=== PATIENT | male | born 1935 | race Caucasian/White ===

== ENCOUNTER → 2016-12-28 | Outpatient (CLI) | payer BC ==
[~2016-12-28] MED LIST: CALC600T9 PO; CHOL2000 PO; OMEG10007 PO
== END | disposition home or self-care (01) ==
LOC: C.LABBC 07:40
PROVIDERS: ATTEND Urology
DX: C61 Malignant neoplasm of prostate (principal)

== ENCOUNTER → 2017-04-04 | Outpatient (CLI) | payer BC ==
[~2017-04-04] MED LIST changes: +DOCU-105 PO
== END | disposition home or self-care (01) ==
LOC: C.MAMM 09:55
PROVIDERS: ATTEND Internal Medicine
DX: M81.0 Age-related osteoporosis without current pathological fracture (principal)

== ENCOUNTER → 2017-04-15 | Outpatient (CLI) | payer BC ==
[2017-04-15 08:39] LABS: ALT/SGPT 18 U/L (12-78); BLOOD UREA NITROGEN 17 mg/dl (7-18); BUN/CREATININE RATIO 17.3 (10-20); CARBON DIOXIDE 29 mmol/L (21-32); CHLORIDE 104 mmol/L (98-107); CREATININE 0.96 mg/dl (0.60-1.40); GLUCOSE 90 mg/dl (70-99); POTASSIUM 3.9 mmol/L (3.5-5.1); SODIUM 139 mmol/L (136-145)
[2017-04-15 08:42] LABS: HEMATOCRIT 39.1 % (42-52); MEAN CELL VOLUME 90.5 fL (80-100); MEAN CORPUSCULAR HEMOGLOBIN 29.9 pg (25-34); MEAN PLATELET VOLUME 10.7 fL (7.4-10.4); PLATELET COUNT 187 K/uL (130-400); RED BLOOD COUNT 4.32 M/uL (4.7-6.1); WHITE BLOOD COUNT 5.34 K/uL (4.8-10.8)
[2017-04-15 08:45] LABS: CALCIUM 8.4 mg/dl (8.5-10.1)
[2017-04-15 08:50] LABS: ALKALINE PHOSPHATASE 53 U/L (45-117); AST/SGOT 17 U/L (15-37)
== END ==
LOC: C.LABFOXMH 08:01
PROVIDERS: ATTEND Internal Medicine
DX: M81.0 Age-related osteoporosis without current pathological fracture (principal)

== ENCOUNTER → 2017-05-30 | Outpatient (CLI) | payer BC ==
[~2017-05-30] MED LIST changes: -DOCU-105 PO
[2017-05-30 11:15] LABS: BLOOD UREA NITROGEN 18 mg/dl (7-18); BUN/CREATININE RATIO 16.2 (10-20)
== END | disposition home or self-care (01) ==
LOC: C.LABBC 07:39
PROVIDERS: ATTEND Urology
DX: C61 Malignant neoplasm of prostate (principal); D49.519 Neoplasm of unspecified behavior of unspecified kidney

== ENCOUNTER → 2017-06-20 | Outpatient (CLI) | payer BC ==
[~2017-06-20] MED LIST changes: +OPTIRAY 320 IV PRN
--- NOTE | 2017-06-20 13:05 | DIAGNOSTIC IMAGING REPORT ---
Abdominal CT WITH AND WITHOUT INTRAVENOUS CONTRAST, RENAL PROTOCOL HISTORY: C61 Neoplasm of prostate, [id number] Renal lnbjidusU91.9 I TECHNIQUE: Multiaxial CT images of the abdomen were performed both before and after the intravenous administration of contrast to evaluate the kidneys. COMPARISON STUDY: Abdominal CT 06/27/2016. FINDINGS: No change in the 2.4 cm exophytic enhancing mass within the upper pole the right kidney. A 4 mm hypodense lesion within the lower pole the right kidney also remain stable. This is too small to characterize but likely represents a cyst. The left kidney enhances normally. No renal stones or hydronephrosis. The liver, gallbladder, pancreas, spleen, and adrenal glands are unremarkable. Trace pericardial fluid, unchanged. Mild dependent changes seen within the base of the right lower lobe. A new 3 mm nodule within the right middle lobe on image 38 of 241. Stable 4 mm nodule within the left lower lobe on image 27. No suspicious lytic or blastic osseous lesions. No retroperitoneal lymphadenopathy. No bowel wall thickening or obstruction. IMPRESSION: No change in the 2.4 cm exophytic enhancing mass within the upper pole of the right kidney. This is consistent with a renal neoplasm until proven otherwise. There is a new 3 mm nodule within the right middle lobe. Stable 4 mm nodule within the left lower lobe. These bear watching on future examinations. Electronically signed by: Kevan Willson M.D. 06/20/2017 1:04 PM Dictated Date/Time: 06/20/2017 12:54 PM
== END | disposition home or self-care (01) ==
LOC: C.CTS 11:22
PROVIDERS: ATTEND Urology
DX: C61 Malignant neoplasm of prostate (principal); D49.519 Neoplasm of unspecified behavior of unspecified kidney; N52.9 Male erectile dysfunction, unspecified

== ENCOUNTER → 2017-08-20 | Outpatient (CLI) | payer BC ==
[~2017-08-20] MED LIST changes: -OPTIRAY 320 IV PRN
== END | disposition home or self-care (01) ==
LOC: C.LAB1850 14:54
PROVIDERS: ATTEND Urology
DX: C61 Malignant neoplasm of prostate (principal)

== ENCOUNTER → 2017-10-07 | Outpatient (CLI) | payer BC ==
[~2017-10-07] MED LIST changes: +DOCU-105 PO
== END | disposition home or self-care (01) ==
LOC: C.LABBC 07:45
PROVIDERS: ATTEND Internal Medicine Hospice and Palliative Medicine
DX: R41.2 Retrograde amnesia (principal)

== ENCOUNTER → 2017-10-07 | Outpatient (CLI) | payer BC ==
--- NOTE | 2017-10-07 15:46 | DIAGNOSTIC IMAGING REPORT ---
HEAD CT NONCONTRAST CT DOSE: 729.78 mGycm HISTORY: EARLY DEMENTIA, HX OF MENINGIOMA TECHNIQUE: Multiaxial CT images of the head were performed without the use of intravenous contrast. Automated exposure control was utilized for this study. A dose lowering technique was utilized adhering to the principles of ALARA. Comparison: Head CT 10/02/2010. Findings: Small retention cyst within the left maxillary sinus. The mastoid air cells are clear. The calvarium and skull base are intact. The ventricles and sulci are within normal limits. There is no hematoma, midline shift, or acute infarct. Stable 2 cm partially calcified extra-axial left frontal mass consistent with a meningioma. Impression: No significant change compared to the prior study. No acute intracranial abnormality. Electronically signed by: Kevan Willson M.D. 10/07/2017 3:45 PM Dictated Date/Time: 10/07/2017 3:35 PM
== END | disposition home or self-care (01) ==
LOC: C.CTS 15:17
PROVIDERS: ATTEND Internal Medicine Hospice and Palliative Medicine
DX: F03.90 Unspecified dementia, unspecified severity, without behavioral disturbance, psychotic disturbance, mood disturbance, and anxiety (principal); Z87.898 Personal history of other specified conditions

== ENCOUNTER → 2017-10-08 | Outpatient (CLI) | payer BC ==
[2017-10-08 13:49] VITALS: BP 125/70; PULSE 68; TEMP 36.8; O2SAT 94
--- NOTE | 2017-10-08 15:47 | Radiation Oncology Follow-Up ---
Radiation Oncology Follow-Up Date of Visit Oct 08, 2017. Reason For Visit Annual follow-up Radiation Completion Date finished 03-04-2015 Diagnosis (1) Prostate cancer Status: Resolved Onset Date: 08/17/2014 Location: right lobe of the prostate Histology Subtype: adenocarcinoma Stage: ll (A) Permanent Comment: On Mar 09, 2015 17:36 Allegra Gary wrote Rising PSA to 5.69 translates to 11.7 Status post ultrasound-guided biopsy 08/17/2014 Adenocarcinoma Cory 4+3 Lupron injection 30 mg 10/20/2014, Casodex 50 mg 1 daily for one month Status post completion of radiation therapy 03/04/2015. He received 8040 cGy Last Edited By: Allegra Gary on Oct 09, 2016 17:00 History of Present Illness Mr. Robert has a history of benign prostatic hypertrophy and elevated prostate- specific antigens. His first prostate-specific antigen spike was in 1993 when it triggered a prostate biopsy. His prostatespecific antigen on July 1994 was 6.9. This biopsy revealed no evidence of malignancy. On 06/14/1995 prostate-specific antigen was 5.91 and on 09/18/1996 prostate-specific antigen was 6.93. On 10/04/1997 prostate-specific antigen was 4.34. 02/17/1999 prostate-specific antigen was 4.56. On 01/11/2000 prostatespecific antigen was 5.15. On 02/03/2001 prostate-specific antigen was 4.23. On 2001 prostate-specific antigen was 5.74. On 05/25/2003 prostate-specific antigen was 5.40. His prostate -specific antigens continue to be followed and on 07/04/2004 increased to 8.19. Because of this elevation a second biopsy was performed on 07/12/2004. It was thought that this prostate-specific antigen elevation was likely due to prostatic inflammation however the patient was planning on a sabbatical in [place] for one year and they wanted to rule out malignancy prior to his departure. Therefore on 07/12/2004 he underwent an ultrasound- guided prostate biopsy. A total of 19 samples were taken. All biopsies were negative for neoplasm and all biopsies showed chronic inflammation. Specimen #: [id number]. Patient continued with periodic prostate-specific antigens. In July 2007 prostate-specific antigen was 6.74. On 06/19/2008 prostate-specific antigen was 5.9 . On 09/01/2010 prostate- specific antigen was 7.5. On 2008 prostate-specific antigen was 8.2. On 07/23/2011 prostate-specific antigen was 3.7. At this point the patient was started on Avodart and his prostate-specific antigen decreased as anticipated. On 01/28/2012 prostatespecific antigen was 3.6 On 09/19/2012 prostate-specific antigen was 3.9. On 08/28/2013 prostate-specific antigen was 4.47 and on 06/16/2014 prostate-specific antigen was 5.69. This translates into a effective prostatespecific antigen value of 11.7. His digital rectal exam revealed an enlarged prostate without nodularity. Because of this persistent rise in prostate-specific antigen and additional prostate biopsy was recommended. On 2013 the patient underwent ultrasound-guided prostate biopsies. Estimated prostate volume was 103 g. A total of 17 biopsies were taken. Of these the 2 biopsies from the left base revealed benign prostatic tissue with mild chronic inflammation and no neoplasm seen. 2 biopsies from the left mid gland revealed benign prostatic tissue with no neoplasm seen. 2 biopsies from the left apex revealed benign prostatic tissue with no neoplasm seen. 2 biopsies from the right apex revealed benign prostatic tissue with no neoplasm seen. 2 biopsies each from the left and right and 3 from the right anterior revealed benign prostatic tissue with mild chronic inflammation on the right. One of 2 biopsies in the right base revealed adenocarcinoma Cory grade of 4+ 3 involving 30% of the core with no perineural invasion seen. One of 2 biopsies from the right mid gland revealed adenocarcinoma Cory grade of 4+3 involving 30% of the core tissue with no perineural invasion seen. Therefore a total of 2 of 17 biopsies were positive. Case: [id number]. Given the patient's age he is not felt to be a surgical candidate He was given hormonal suppression. He was treated with external beam radiation therapy. This was completed 03/04/2015. He received 8040 cGy. Interim History He's been doing well over this past year. He gave an AUA score of 3. He does not require any medication to help with urination. He completed expanded prostate cancer index composite for clinical practice and gave a score of 0 of 12 in urinary incontinence symptoms. He gave a score of 2 of 12 in urinary irritation symptoms. He gave a score of 2 of 12 bowel symptoms. He gave a score of 6 of 12 and sexual symptoms. He gave a score of 0 of 12 and hormonal vitality symptoms. His total was 10 of 60. He did have a recheck PSA on 2016. This was 0.536. He has continued follow-up with Dr. Rodriguez as well as Dr. Martini. He had his annual CT for follow-up on the renal lesion. This was found to be stable. He did have some new nodules. He is aware of these findings. This will need to be followed and rechecked in June. Allergies Coded Allergies: Oxycodone (Verified Adverse Reaction, Mild, NAUSEA AND VOMITING, 07/12/15) Home Medications Scheduled Calcium Carbonate-Vitamin D (Calcium + D), 1 CAP PO QAM Cholecalciferol (Vitamin D3), 1 CAP PO QAM Docusate Sodium (Dulcolax Stool Softener), 1 CAP PO DAILY Fish Oil (Minto-3), 1 CAP PO QAM Review of Systems Gastrointestinal: Symptoms: Constipation GI Comments: takes a stool softner daily Oral: Symptoms: No Problems Respiratory: Symptoms: WNL Urinary: Symptoms: Nocturia Comments: urgency, nocturia times 1 Skin: Symptoms: No Problems Other Skin Symptoms: occ has itchiness in the area he had the radiation, denies a rash Physical Exam Vital Signs Date Time Temp Pulse Resp B/P (MAP) Pulse Ox O2 Delivery O2 Flow Rate FiO2 10/08/17 13:49 36.8 68 16 125/70 94 Fatigue: None General Appearance: no apparent distress Eyes: normal inspection, EOMI ENT: normal ENT inspection, hearing grossly normal Respiratory/Chest: lungs clear, no respiratory distress, no accessory muscle use Cardiovascular: regular rate, rhythm, no gallop, no murmur Abdomen: non tender, soft, no organomegaly Anal / Rectum: External and internal hemorrhoids. Normal sphincter tone. Prostate is smooth without nodules. No rectal masses and no rectal bleeding. Extremities: no pedal edema Neurologic/Psychiatric: no motor/sensory deficits, alert, normal mood/affect Skin: warm/dry Pain Management Side: Bilateral Patient Preferred Pain Scale: 0 - 10 Laboratory Studies Test 08/20/17 14:56 10/07/17 07:47 Prostate Specific Antigen 0.536 ng/ml (0.000-4.000) Erythrocyte Sedimentation Rate 7 mm/hr (0-14) Vitamin B12 Level 548 pg/mL (211-911) Folate 17.31 ng/mL (>5.38) Additional Studies Patient: ALINE ROBERT Address1: [address] [facility] Rec: [id number] Address2: [address] Acct ID: [id number] [facility] Zip: [place] [address] Date: 1935 Sex: M Room/Bed: Ref Phy: Nik Goode M.D. SC: C.CTS Att Phy: Dante Rodriguez M.D. Report #: [id number] Kathrine Phy: Nik Goode M.D. Test: [facility] Admit Phy: Application Release Manager: ALBAN Interpreting Phy: Kevan Willson MD Diagnosis: PROSTATE CA,RENAL NEOPLASM Ordering Phy: Dante Rodriguez M.D. Service Date: 06/20/17 Admit Date: 06/20/17 MNE: [id number] CONF: DICTATED BY: Kevan Willson M.D.]] CC: Dante Rodriguez M.D. Sepich, Rodney M. M.D. Endcc: [~ rep ct add3]] Abdominal CT WITH AND WITHOUT INTRAVENOUS CONTRAST, RENAL PROTOCOL HISTORY: C61 Neoplasm of prostate, [id number] Renal bkkjpigaK52.9 I TECHNIQUE: Multiaxial CT images of the abdomen were performed both before and after the intravenous administration of contrast to evaluate the kidneys. COMPARISON STUDY: Abdominal CT 06/27/2016. FINDINGS: No change in the 2.4 cm exophytic enhancing mass within the upper pole the right kidney. A 4 mm hypodense lesion within the lower pole the right kidney also remain stable. This is too small to characterize but likely represents a cyst. The left kidney enhances normally. No renal stones or hydronephrosis. The liver, gallbladder, pancreas, spleen, and adrenal glands are unremarkable. Trace pericardial fluid, unchanged. Mild dependent changes seen within the base of the right lower lobe. A new 3 mm nodule within the right middle lobe on image 38 of 241. Stable 4 mm nodule within the left lower lobe on image 27. No suspicious lytic or blastic osseous lesions. No retroperitoneal lymphadenopathy. No bowel wall thickening or obstruction. IMPRESSION: No change in the 2.4 cm exophytic enhancing mass within the upper pole of the right kidney. This is consistent with a renal neoplasm until proven otherwise. There is a new 3 mm nodule within the right middle lobe. Stable 4 mm nodule within the left lower lobe. These bear watching on future examinations. Electronically signed by: Kevan Willson M.D. 06/20/2017 1:04 PM Dictated Date/Time: 06/20/2017 12:54 PM Assessment & Plan Jade is Plan: We discussed the PSAs. There has been a slight increase over the past several evaluations. I've asked him to have this rechecked in 6 months. This may be near the time of his next visit with Dr. Rodriguez. He will check his schedule. An order was given for the PSA if he does not have an appointment. He'll continue his annual CAT scans to evaluate the pulmonary nodules as well as the lesion of the kidney. He is aware of these findings. And nose that he will be due in June 2018 for the recheck CAT scan. We asked him to return to our office in 1 year. He may call if he has any questions or concerns in the interim. Due to the finding of a pulmonary nodules on his CT I will refer his name to the pulmonary nodule clinic. Assessment & Plan (Attending) Total Time In Follow-Up I spent 20 minutes speaking to the patient performing examination. I spent 15 minutes reviewing information in completing this note. Copy To Dante Rodriguez M.D.; Obinna Mariano M.D.; Josef Martini M.D.; Nik Goode M.D.
== END | disposition home or self-care (01) ==
LOC: C.ONC 13:42
PROVIDERS: ATTEND Physician Assistant Medical
DX: Z08 Encounter for follow-up examination after completed treatment for malignant neoplasm (principal); Z92.3 Personal history of irradiation; Z85.46 Personal history of malignant neoplasm of prostate

== ENCOUNTER → 2017-10-21 | Outpatient (CLI) | payer BC ==
[2017-10-21 09:41] LABS: CHOLESTEROL/HDL RATIO 2.4
== END | disposition home or self-care (01) ==
LOC: C.LABFOXMH 08:52
PROVIDERS: ATTEND Internal Medicine
DX: E78.00 Pure hypercholesterolemia, unspecified (principal)

== ENCOUNTER → 2018-02-20 | Outpatient (CLI) | payer BC | LOC: C.LABBC 09:58 | PROVIDERS: ATTEND Urology | DX: C61 Malignant neoplasm of prostate (principal) ==

== ENCOUNTER → 2018-06-05 | Outpatient (CLI) | payer BC ==
[2018-06-05 10:00] LABS: BLOOD UREA NITROGEN 16 mg/dl (7-18); CREATININE 0.98 mg/dl (0.60-1.40)
== END ==
LOC: C.LAB 07:58
PROVIDERS: ATTEND Urology
DX: D49.519 Neoplasm of unspecified behavior of unspecified kidney (principal)

== ENCOUNTER → 2018-06-16 | Outpatient (CLI) | payer BC ==
[~2018-06-16] MED LIST changes: +OPTIRAY 320 IV PRN
--- NOTE | 2018-06-16 13:29 | DIAGNOSTIC IMAGING REPORT ---
ABD/PELVIS COMBO CT DOSE: 1480.13 mGycm HISTORY: C61 Malignant neoplasm of [id number] Renal neoplasmAUTH N00 TECHNIQUE: Multiaxial CT images of the abdomen and pelvis were performed pre and post intravenous contrast enhancement. A dose lowering technique was utilized adhering to the principles of ALARA. COMPARISON STUDY: 06/20/2017 FINDINGS: Lung bases remain clear. Micronodularity previously described in the right as well as left lung base remains stable. No evidence for new or interval nodular focus. Liver demonstrates a component of fatty infiltration. Spleen enhances uniformly. The adrenal glands show minimal hyperplastic change which is stable from the prior study. The exophytic lesion upper aspect right kidney currently measures 2.2 x 2.0 cm. This is unchanged from the prior study. Very small microcyst lower aspect right kidney is also stable. Left kidney enhances uniformly. Spleen pancreas are unremarkable. The bowel pattern within the abdomen and pelvis is considered nonobstructive. No significant adenopathy within the abdominal pelvic or inguinal regions. Prosthetic enlargement. Mild bladder wall thickening. Small fat-containing left inguinal hernia with a small right inguinal hernia containing a short segment nonobstructive loop of bowel. IMPRESSION: 1. Stable exam with no change from the prior study. 2. The upper pole right renal mass is unchanged in appearance as well as dimension 3. Stable prostate enlargement and mild bladder wall thickening. The above report was generated using voice recognition software. It may contain grammatical, syntax or spelling errors. Electronically signed by: Kristian Pitts M.D. 06/16/2018 1:27 PM Dictated Date/Time: 06/16/2018 1:17 PM
== END | disposition home or self-care (01) ==
LOC: C.CTS 12:50
PROVIDERS: ATTEND Urology
DX: C61 Malignant neoplasm of prostate (principal); D49.519 Neoplasm of unspecified behavior of unspecified kidney

== ENCOUNTER 2023-03-01 14:53 | Inpatient (IN) ==
[2023-03-01] MEDS ORDERED: MoRPHine SULFATE 4 MG/ML 1 ML CARP\\VIAL IV STA (15:22)
--- NOTE | 2023-03-01 15:24 | Emergency Department Note ---
Impression & Plan Fall from standing, Fracture of proximal end of right femur ED Provider Note HISTORY OF PRESENT ILLNESS: Patient is an 87-year-old male who presents with right hip pain after fall from standing. Patient reportedly was attempting to take out his garbage when he lost his footing and fell, landing on his right hip. He was unable to get up on his own and 911 was called. Patient denies striking his head or loss of consciousness. He is not on any anticoagulation. Currently complaining of pain in the right hip. He was given 100 mcg of IV fentanyl and 4 mg of Zofran prehospital. Patient denies any chest pain, shortness of breath or lightheadedness prior to falling. He reports he just lost his footing ROS: as above PHYSICAL EXAM: Constitutional: Patient appears in no acute distress. HENT: Head: Normocephalic and atraumatic. Eyes: EOMI, PERRL Mouth/Throat: Mucous membranes moist. Neck: Trachea midline. Neck supple. No midline cervical spine tenderness to palpation. Cardiovascular: RRR, No murmurs, rubs or gallops. Intact distal pulses. Pulmonary/Chest: No respiratory distress. Breath sounds clear and equal bilaterally. No wheezes or rales. No chest wall tenderness to palpation. Abdominal: BS +. Abdomen soft, no tenderness, rebound or guarding. Musculoskeletal: - RLE: Right lower extremity is shortened and externally rotated. Patient has tenderness palpation over the proximal femur and lateral hip. Able to dorsiflex and plantarflex at the ankle. Intact DP and PT pulses. Able to wiggle toes. Sensation intact to light touch at the nerve distributions of the leg. Skin: Warm and dry. No rash, erythema, pallor or cyanosis Psychiatric: Appropriate mood and affect for situation. Neurological: Alert and keenly responsive. CN II-XII grossly intact, moving a ll extremities equally and fully. MDM: - Vitals signs showed hypertension. - History obtained via patient and patient's . Patient presents with right hip pain after a fall from standing. Patient reports he had a mechanical fall while trying to take his trash out and lost his footing, landing on his right hip. He was unable to ambulate secondary to the fall. Denies striking his head or loss of consciousness. Currently complaining of pain in the right hip - Chronic conditions affecting care: prostate cancer; Parkinson's disease - Differential diagnoses include, but are not limited to: femur fracture; pelvic fracture; femur dislocation - Order placed for continuous cardiac monitoring. At this time, monitor showed rate of 63 bpm with normal sinus rhythm, per my interpretation. - External medical records reviewed. EMS run sheet reviewed. Patient was given 100 mcg of IV fentanyl and 4 mg of IV Zofran prehospital - Laboratory workup interpreted by myself showed normal WBC; stable electrolytes - CXR negative for pneumonia, per my interprtetation. - Xray pelvis showed displaced and overriding spiral fracture of intertrochanteric/subtrochanteric right proximal femur. - Discussed case with orthopedist instructional technology coordinator, Dr. Aldana. He reports that his group can perform this surgery at [facility]. - Discussion was had with social work about patient's case and need for admission - Hospitalist consulted for admission. - Patient admitted to [facility] Hosptalist service for further evaluation and management. 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 He received 8040 cGy" On 03/09/15 17:36 Allegra Gary wrote "Rising PSA to 5.69 translates to 11.7 Status post ultrasound-guided biopsy 08/17/2014 Adenocarcinoma [place] 4+3 Lupron injection 30 mg 10/20/2014, Casodex 50 mg 1 daily for one month " Surgical History (Updated 10/09/22 @ 14:00 by Pinky Thomas RN) History of appendectomy History of colonoscopy History of knee replacement RT S/P mastectomy S/P tonsillectomy and adenoidectomy Family History Father Heart disease Hypertension Mother Ovarian cancer Cancer Allergies Other No pertinent family history in first degree relatives Denies family history of Hearing loss No family history of adverse response to anesthesia No family history of bleeding disorder Stroke Asthma Social History Smoking Status: Never smoker Tobacco Type: Pipe Second Hand Exposure: Yes ( A CHILD); Hx Alcohol Use: Yes Alcohol type: wine Alcohol Intake Frequency: 4 or More x per/Week Hx Substance Use: No Preferred Language: [place] [employer] Supervisor Required: No Beliefs That Will Affect Care: None marital status: Current Living Situation: Spouse Current Living Situation Comment: [facility] current occupational status: retired Feels Safe at Home: Yes Assistive Devices: Glasses, Hearing Aid - Bilateral and Walker Allergies Allergies Allergy/AdvReac Type Severity Reaction Status Date / Time oxycodone AdvReac Mild NAUSEA AND Verified 10/15/22 13:38 VOMITING Home Meds Home Medications Medication Instructions Recorded Confirmed candesartan 4 mg tablet 4 mg PO DAILY 08/27/19 03/01/23 cholecalciferol (vitamin D3) 125 125 mcg PO DAILY 07/26/21 03/01/23 mcg (5,000 unit) capsule carbidopa 25 mg-levodopa 100 mg 1 tab PO TID 03/01/23 03/01/23 tablet cyanocobalamin (vitamin B-12) 1,000 mcg PO DAILY 03/01/23 03/01/23 1,000 mcg capsule Previous Rx's Medication Instructions Recorded ipratropium bromide 42 mcg (0.06 2 spray intranasal DAILY #45 mL 10/11/22 %) nasal spray Results & Data (ED) Vital Signs Vital Signs - 24 hr 03/01/23 15:04 03/01/23 15:04 03/01/23 15:30 Temperature 36.5 C Temperature Source Oral Pulse Rate 62 60 Pulse Rate [Right Apical] 62 Pulse Rate from SpO2 Sensor 58 L Respiratory Rate 18 18 14 Respiratory Effort / Characteristics Non-Labored Spontaneous Non-Labored Spontaneous Respiratory Depth Normal Normal Respiratory Pattern Regular Regular Blood Pressure 174/116 H 151/78 H Blood Pressure [Right Arm] 174/116 H Blood Pressure Mean 135 102 Blood Pressure Mean [Right Arm] 135 Pulse Oximetry 99 99 97 Oxygen Delivery Method Room Air Room Air Room Air Sepsis Recent Fever Within 48 Hours No Sepsis New/Unexplained Change in Mental Status No Sepsis Action Taken by Nursing No Action Required 03/01/23 15:19 03/01/23 16:01 Temperature Temperature Source Pulse Rate 56 L 61 Pulse Rate [Right Apical] Pulse Rate from SpO2 Sensor 59 L Respiratory Rate 14 Respiratory Effort / Characteristics Respiratory Depth Respiratory Pattern Blood Pressure 163/89 H Blood Pressure [Right Arm] Blood Pressure Mean 113 Blood Pressure Mean [Right Arm] Pulse Oximetry 99 Oxygen Delivery Method Room Air Sepsis Recent Fever Within 48 Hours Sepsis New/Unexplained Change in Mental Status Sepsis Action Taken by Nursing Laboratory Data 03/01/23 15:34 03/01/23 15:34 Lab Results 03/01/23 03/01/23 Range/Units 15:34 15:34 WBC 5.61 (4.8-10.8) K/ul RBC 3.66 L (4.70-6.10) M/uL Hgb 11.1 L (14.0-18.0) g/dl Hct 33.4 L (42.0-52.0) % MCV 91.3 (80.0-100.0) fL MCH 30.3 (25.0-34.0) pg MCHC 33.2 (32.0-36.0) g/dL RDW Std Deviation 42.8 (36.4-46.3) fL RDW Coeff of Jones 13.0 (11.5-14.5) % Plt Count 142 (130-400) K/uL MPV 10.5 (9.4-12.4) fL Immature Gran % (Auto) 0.7 % Neut % (Auto) 82.7 % Lymph % (Auto) 8.0 % [place] % (Auto) 6.8 % Eos % (Auto) 1.4 % Baso % (Auto) 0.4 % Neut # (Auto) 4.64 (1.40-6.50) K/uL Lymph # (Auto) 0.45 L (1.2-3.4) K/uL [place] # (Auto) 0.38 (0.11-0.59) K/uL Eos # (Auto) 0.08 (0-0.50) K/uL Baso # (Auto) 0.02 (0-0.2) K/uL Immature Gran # (Auto) 0.04 (0.01-0.20) K/uL Sodium 134 L (136-145) mmol/L Potassium 4.1 (3.5-5.1) mmol/L Chloride 100 (98-107) mmol/L Carbon Dioxide 29 (21-32) mmol/L Anion Gap 5 (3-11) BUN 25 H (6-23) mg/dl Creatinine 0.91 (0.6-1.4) mg/dl Est Cr Clr Drug Dosing 53.5 ml/min Est GFR ( Amer) 87.5 ml/min Est GFR (Non-Af Amer) 75.5 ml/min BUN/Creatinine Ratio 27.5 H (10-20) Glucose 111 H (70-99(Fasting)) mg/dl Calcium 8.6 (8.6-10.3) mg/dl Total Bilirubin 0.4 (0.2-1.0) mg/dl AST 16 (13-39) U/L ALT 3 L (7-52) U/L Alkaline Phosphatase 52 (34-104) U/L Total Protein 6.0 (6.0-8.3) gm/dl Albumin 3.6 (3.4-5.0) gm/dl Globulin 2.4 L (2.5-4.0) gm/dl Albumin/Globulin Ratio 1.5 (0.9-2) Administered Medications Discontinued Medications Morphine Sulfate (Morphine Sulfate 4 Mg/Ml 1 Ml Carp\\Vial) 4 mg IV NOW STA Stop: 03/01/23 15:23 Last Admin: 03/01/23 15:33 Dose: 4 mg Documented By: S Imaging Data Radiologist's Impression: Hip/Pelvis X-Ray 03/01/23 15:22 SINGLE VIEW PELVIS; 2 VIEWS RIGHT HIP CLINICAL HISTORY: Fall. Right hip injury. FINDINGS: An AP supine view of the pelvis with AP and crosstable lateral views of the right hip are compared to study dated 03/15/2022. The skeletal structures are osteopenic. There is no radiographic evidence of acute fracture involving the bony pelvis or the left hip. There is a displaced spiral fracture of the intertrochanteric/subtrochanteric right proximal femur. The fragments are displaced by up to 4.5 cm, and there is overriding of fragments. There is medial displacement of the lesser trochanter. Overlying soft tissue edema is observed. Fiducials project over the prostate gland. Moderate arthritic change and joint space narrowing is noted in the hips. Lumbosacral spondylosis is partially imaged. IMPRESSION: Displaced and overriding spiral fracture of the intertrochanteric/subtrochanteric right proximal femur as above. Electronically signed by: Alon Pena M.D. 03/01/2023 4:16 PM Chest X-Ray 03/01/23 15:56 SINGLE VIEW CHEST CLINICAL HISTORY: Fall. Right hip fracture. Preoperative examination. FINDINGS: An AP, portable, supine chest radiograph is compared to study dated 08/18/2022. The examination is degraded by portable technique and patient rotation. The heart is enlarged noting atherosclerotic calcification of the thoracic aorta. The pulmonary vasculature is noncongested. Chronic interstitial thickening similar to previous. Scarring/atelectasis is noted at the lung bases. No airspace consolidation or large pleural effusion is identified. No pneumothorax is seen. The skeletal structures are osteopenic. The bony thorax is grossly intact. Arthritic change is seen in the shoulders. IMPRESSION: Cardiomegaly with no acute cardiopulmonary abnormality identified. ACT 112: Negative or not required by law. Electronically signed by: Alon Pena M.D. 03/01/2023 4:21 PM Discharge Plan Visit Data Chief Complaint: Fall Stated Complaint: Fall ED Provider: Iveth Shook Discharge Problem: Fall from standing, Fracture of proximal end of right femur Forms Stand Alone Forms: [facility] Prescriptions Prescriptions: No Action candesartan 4 mg tablet 4 mg PO DAILY ipratropium bromide 42 mcg (0.06 %) spray,non-aerosol 2 spray intranasal DAILY Qty: 45 4RF cholecalciferol (vitamin D3) 125 mcg (5,000 unit) capsule 125 mcg PO DAILY carbidopa-levodopa 25-100 mg tablet 1 tab PO TID cyanocobalamin (vitamin B-12) 1,000 mcg Capsule 1,000 mcg PO DAILY Referrals Referrals: Jim Elizabeth [Non-Staff] -
[2023-03-01 15:50] LABS: Basophils # (auto) 0.02 K/uL (0-0.2); Basophils % (auto) 0.4 %; Eosinophils # (auto) 0.08 K/uL (0-0.50); Eosinophils % (auto) 1.4 %; Hematocrit (blood only) 33.4 % (42.0-52.0); Hemoglobin 11.1 g/dl (14.0-18.0); Immature Granulocytes # (auto) 0.04 K/uL (0.01-0.20); Immature Granulocytes % (auto) 0.7 %; Lymphocytes # (auto) 0.45 K/uL (1.2-3.4); Mean Corpuscular Hemoglobin 30.3 pg (25.0-34.0); Mean Corpuscular Hgb Conc 33.2 g/dL (32.0-36.0); Mean Corpuscular Volume 91.3 fL (80.0-100.0); Mean Platelet Volume 10.5 fL (9.4-12.4); Monocytes # (auto) 0.38 K/uL (0.11-0.59); Monocytes % (auto) 6.8 %; Neutrophils # (auto) 4.64 K/uL (1.40-6.50); Neutrophils % (auto) 82.7 %; Platelet Count 142 K/uL (130-400); RDW Standard Deviation 42.8 fL (36.4-46.3); Red Blood Count 3.66 M/uL (4.70-6.10); White Blood Count 5.61 K/ul (4.8-10.8)
[2023-03-01 16:14] LABS: Albumin Globulin Ratio 1.5 (0.9-2); Albumin Level 3.6 gm/dl (3.4-5.0); BUN Creatinine Ratio 27.5 (10-20); Bilirubin,Total 0.4 mg/dl (0.2-1.0); Calcium 8.6 mg/dl (8.6-10.3); Creatinine Clr Calc Pharmacy 53.5 ml/min; Est GFR (African American) 87.5 ml/min; Est GFR (Non-African American) 75.5 ml/min; Globulin 2.4 gm/dl (2.5-4.0); Potassium 4.1 mmol/L (3.5-5.1)
--- NOTE | 2023-03-01 16:17 | XRay Report ---
SINGLE VIEW PELVIS; 2 VIEWS RIGHT HIP CLINICAL HISTORY: Fall. Right hip injury. FINDINGS: An AP supine view of the pelvis with AP and crosstable lateral views of the right hip are c ompared to study dated 03/15/2022. The skeletal structures are osteopenic. There is no radiographic vesna dence of acute fracture involving the bony pelvis or the left hip. There is a displaced spiral fractu re of the intertrochanteric/subtrochanteric right proximal femur. The fragments are displaced by up t o 4.5 cm, and there is overriding of fragments. There is medial displacement of the lesser trochanter . Overlying soft tissue edema is observed. Fiducials project over the prostate gland. Moderate arthri tic change and joint space narrowing is noted in the hips. Lumbosacral spondylosis is partially image d. IMPRESSION: Displaced and overriding spiral fracture of the intertrochanteric/subtrochanteric right p roximal femur as above. Electronically signed by: Alon Pena M.D. 03/01/2023 4:16 PM
--- NOTE | 2023-03-01 16:22 | XRay Report ---
SINGLE VIEW CHEST CLINICAL HISTORY: Fall. Right hip fracture. Preoperative examination. FINDINGS: An AP, portable, supine chest radiograph is compared to study dated 08/18/2022. The examinat ion is degraded by portable technique and patient rotation. The heart is enlarged noting atherosclero tic calcification of the thoracic aorta. The pulmonary vasculature is noncongested. Chronic interstit ial thickening similar to previous. Scarring/atelectasis is noted at the lung bases. No airspace cons olidation or large pleural effusion is identified. No pneumothorax is seen. The skeletal structures a re osteopenic. The bony thorax is grossly intact. Arthritic change is seen in the shoulders. IMPRESSION: Cardiomegaly with no acute cardiopulmonary abnormality identified. ACT 112: Negative or not required by law. Electronically signed by: Alon Pena M.D. 03/01/2023 4:21 PM
[2023-03-01] MEDS ORDERED: ACETAMINOPHEN 325 MG TAB PO STA (17:30)
[2023-03-01] MEDS ORDERED: MoRPHine SULFATE 2 MG/ML CARP IV PRN (17:30)
--- NOTE | 2023-03-01 17:37 | Anesthesiology Consultation ---
Date of Service March 01, 2023 Assessment & Plan (1) Encounter for pre-operative examination: Chart Review Chart Review: Acceptable Risk for Surgery and Patient NOT seen in Pre Admission Testing will need to review ecg as not uploaded at this tie. Consults Requested none History Surgery Operation Date: 03/02/23 07:30 Proposed Procedures p Right Long Trochanteric Femoral Nail - Louie Aldana M.D. Height/Weight Height: 5 ft 7 in Weight: 72.7 kg Allergies Allergy/AdvReac Type Severity Reaction Status Date / Time oxycodone AdvReac Mild NAUSEA AND Verified 10/15/22 13:38 VOMITING Medications Home Medications Medication Instructions Recorded Confirmed Last Taken candesartan 4 mg tablet 4 mg PO DAILY 08/27/19 03/01/23 03/01/23 cholecalciferol (vitamin D3) 125 125 mcg PO DAILY 07/26/21 03/01/23 03/01/23 mcg (5,000 unit) capsule ipratropium bromide 42 mcg (0.06 2 spray intranasal DAILY #45 mL 10/11/22 03/01/23 03/01/23 %) nasal spray carbidopa 25 mg-levodopa 100 mg 1 tab PO TID 03/01/23 03/01/23 03/01/23 tablet cyanocobalamin (vitamin B-12) 1,000 mcg PO DAILY 03/01/23 03/01/23 02/28/23 1,000 mcg capsule Past Medical History Medical History (Updated 03/01/23 @ 17:36 by Demetrius Contreras MD) Arthritis Benign prostatic hypertrophy Breast cancer in male hx of Degenerative joint disease Encounter for pre-operative examination Hip bursitis, left Hypertension Lumbar spondylosis Prostate cancer (08/17/14) Past Family History Family History Father Heart disease Hypertension Mother Ovarian cancer Cancer Allergies Other No pertinent family history in first degree relatives Denies family history of Hearing loss No family history of adverse response to anesthesia No family history of bleeding disorder Stroke Asthma Past Surgical History Surgical History History of appendectomy History of colonoscopy History of knee replacement RT S/P mastectomy S/P tonsillectomy and adenoidectomy Social History Smoking Status: Never smoker tobacco type: pipe Hx Alcohol Use: Yes Alcohol type: wine alcohol intake frequency: 0-2 drinks per day Hx Substance Use: No substance use type: does not use Physical Exam Vital Signs Last Vital Signs Temp 36.5 C 03/01/23 15:04 Pulse 73 03/01/23 17:00 Resp 14 03/01/23 17:00 BP 164/85 H 03/01/23 17:00 Pulse Ox 98 03/01/23 17:00 O2 Del Method Room Air 03/01/23 17:00 Testing Laboratory Results 03/01/23 15:34 03/01/23 15:34 Chest X-Ray Date: 03/01/23 SINGLE VIEW CHEST CLINICAL HISTORY: Fall. Right hip fracture. Preoperative examination. FINDINGS: An AP, portable, supine chest radiograph is compared to study dated 08/18/2022. The examination is degraded by portable technique and patient rotation. The heart is enlarged noting atherosclerotic calcification of the thoracic aorta. The pulmonary vasculature is noncongested. Chronic interstitial thickening similar to previous. Scarring/atelectasis is noted at the lung bases. No airspace consolidation or large pleural effusion is identified. No pneumothorax is seen. The skeletal structures are osteopenic. The bony thorax is grossly intact. Arthritic change is seen in the shoulders. IMPRESSION: Cardiomegaly with no acute cardiopulmonary abnormality identified.
--- NOTE | 2023-03-01 17:47 | History & Physical Report ---
Date of Service March 01, 2023 Assessment & Plan (1) Fall from standing: Plan: -The patient is currently afebrile, hemodynamically stable, and stable on RA -Sustained a closed Displaced and overriding spiral fracture of the intertrochanteric/subtrochanteric right proximal femur falling off his kitchen chair while reaching for his walker -No other acute trauma, did not hit his head or lose consciousness and is not on anticoagulation -Orthopedics is consulted and confirmed they are ok with him staying here for repair -The patient is a revised cardiac risk index level 1 and is clear from a medicine standpoint for surgery -Pain control with tylenol q6h scheduled, 2 mg IV morphine q4h prn pain 4,5,6+, lidocaine patch -Bedrest for now -NPO at midnight, will order him a diet until then -BL SCD's for DVT PPX, ortho would like to hold chemical PPX for now -AM CBC, BMP, PT/INR -PT/OT consults placed (2) Closed right hip fracture: Plan: -See fall from standing (3) Parkinsonism: Plan: -Continue Carbidopa-levodopa (4) Hypertension: Plan: -Stable -Hold candesartan tomorrow in preparation for the OR (5) Osteoporotic fracture of right hip: Plan The patient was discussed with Dr. Luke at the time of the admission History of Present Illness Chief Complaint: Fall, right hip pain Primary Care Provider: Nik Goode MD Reid is an 87 year old male with a PMH significant for dysphonia, parkinsonism, prostate cancer S/P radiation therapy and BPH who presented to the [facility] ED on 03/01/23 via EMS after a mechanical fall from standing and right hip pain. In the ED the patient was initially hypertensive at 174/116, otherwise vitals were stable. Labs including CBC and CMP were without acute abnormalities. Chest xray was read as Cardiomegaly with no acute cardiopulmonary abnormality identified.. Xray of the pelvis was read as Displaced and overriding spiral fracture of the intertrochanteric/subtrochanteric right proximal femur as above.. Prior to admission the patient was given 4 mg IV morphine. At the time of the exam the patient was lying in bed in no acute distress with his sitting bedside, history was obtained from both. He states that he was in his normal state of health, sitting at the kitchen table. He was sitting and tried to reach for his walker when he fell off his chair, landing on his right side. He denies hitting his head or losing consciousness. His states that he started Carbidopa-Levodopa approximately 2 weeks ago, they have not noticed any side effects. Currently his only complaint is 4/10 right hip pain. He denies headache, changes in vision, hearing, taste, smell, chest pain, SOB, abd pain, nausea, vomiting, diarrhea, dysuria, hematuria, melena, LE swelling, and other pain from his fall. We discussed code status, he has a living will and his is his POA. He is a DNR/DNI. Please refer to Dr. Luke's attestation for any changes to the treatment plan Allergies Allergy/AdvReac Type Severity Reaction Status Date / Time oxycodone AdvReac Mild NAUSEA AND Verified 10/15/22 13:38 VOMITING Home Medications Medication Instructions Recorded Confirmed Type candesartan 4 mg tablet 4 mg PO DAILY 08/27/19 03/01/23 History cholecalciferol (vitamin D3) 125 125 mcg PO DAILY 07/26/21 03/01/23 History mcg (5,000 unit) capsule ipratropium bromide 42 mcg (0.06 2 spray intranasal DAILY #45 mL 10/11/22 03/01/23 Rx %) nasal spray carbidopa 25 mg-levodopa 100 mg 1 tab PO TID 03/01/23 03/01/23 History tablet cyanocobalamin (vitamin B-12) 1,000 mcg PO DAILY 03/01/23 03/01/23 History 1,000 mcg capsule Past Med/Surg History Medical History (Updated 03/02/23 @ 11:14 by Randy Luke MD) Arthritis Benign prostatic hypertrophy Breast cancer in male hx of Degenerative joint disease Encounter for pre-operative examination Hip bursitis, left Hypertension Lumbar spondylosis Prostate cancer (08/17/14) Surgical History History of appendectomy History of colonoscopy History of knee replacement RT S/P mastectomy S/P tonsillectomy and adenoidectomy Family History Father Heart disease Hypertension Mother Ovarian cancer Cancer Allergies Other No pertinent family history in first degree relatives Denies family history of Hearing loss No family history of adverse response to anesthesia No family history of bleeding disorder Stroke Asthma Social History Smoking Status: Never smoker Tobacco Type: Pipe Second Hand Exposure: Yes ( A CHILD); Hx Alcohol Use: Yes Alcohol type: wine Alcohol Intake Frequency: 4 or More x per/Week Hx Substance Use: No Preferred Language: Kuwaiti Communication Ability: Effective Working Second Hand Required: No Beliefs That Will Affect Care: None marital status: Current Living Situation: Spouse Current Living Situation Comment: [facility] current occupational status: retired Other Information That Helps Us Care for You: No Feels Safe at Home: Yes Safety Concerns: Feels Safe At This Time Assistive Devices: Walker Physical Exam Physical Exam: Physical Exam: General: In no acute distress, stated age, well-nourished, good hygiene HEENT: Normocephalic, masked facies noted, no scleral icterus, pupils around round, symmetrical, and reactive to light, moist mucus membranes, trachea midline, no thyromegaly Chest/Pulm: No respiratory distress, symmetrical chest expansion, clear breath sounds throughout Cardiac: RRR, no murmurs noted Abdomen: Negative for ascites and bruising, normoactive bowel sounds, soft, non-tender to palpation throughout Musculoskeletal: Patient with right leg shortened and externally rotated, upper extremities with full ROM, no other acute trauma noted Extremities: Radial, dorsalis pedis, and posterior tibial pulses are intact and symmetrical, no edema noted in the BL LE's Skin: Warm, dry, no rashes , lesions, or scars noted Neuro: Alert and oriented to person, place, month, year, and president, no focal defects, CN II-XII tested and intact, baseline tremor noted Psych: No acute distress, calm and cooperative during the exam Results & Data Results & Data Vital Signs (Past 12 Hours) Vital Signs Temp Pulse Pulse Resp BP BP Pulse Ox 03/01/23 17:00 73 14 164/85 H 98 03/01/23 16:30 64 12 147/88 H 99 03/01/23 16:01 61 14 163/89 H 99 03/01/23 15:19 56 L 03/01/23 15:30 60 14 151/78 H 97 03/01/23 15:04 36.5 C 62 18 174/116 H 99 03/01/23 15:04 62 18 174/116 H 99 O2 Del Method 03/01/23 17:00 Room Air 03/01/23 16:30 Room Air 03/01/23 16:01 Room Air 03/01/23 15:19 03/01/23 15:30 Room Air 03/01/23 15:04 Room Air 03/01/23 15:04 Room Air Laboratory Results Abnormal lab results 03/01/23 03/01/23 Range/Units 15:34 15:34 RBC 3.66 L (4.70-6.10) M/uL Hgb 11.1 L (14.0-18.0) g/dl Hct 33.4 L (42.0-52.0) % Lymph # (Auto) 0.45 L (1.2-3.4) K/uL Sodium 134 L (136-145) mmol/L BUN 25 H (6-23) mg/dl BUN/Creatinine Ratio 27.5 H (10-20) Glucose 111 H (70-99(Fasting)) mg/dl ALT 3 L (7-52) U/L Globulin 2.4 L (2.5-4.0) gm/dl Diagnostic Findings Hip/Pelvis X-Ray 03/01/23 15:22 SINGLE VIEW PELVIS; 2 VIEWS RIGHT HIP CLINICAL HISTORY: Fall. Right hip injury. FINDINGS: An AP supine view of the pelvis with AP and crosstable lateral views of the right hip are compared to study dated 03/15/2022. The skeletal structures are osteopenic. There is no radiographic evidence of acute fracture involving the bony pelvis or the left hip. There is a displaced spiral fracture of the intertrochanteric/subtrochanteric right proximal femur. The fragments are displaced by up to 4.5 cm, and there is overriding of fragments. There is medial displacement of the lesser trochanter. Overlying soft tissue edema is observed. Fiducials project over the prostate gland. Moderate arthritic change and joint space narrowing is noted in the hips. Lumbosacral spondylosis is partially imaged. IMPRESSION: Displaced and overriding spiral fracture of the intertrochanter ic/subtrochanteric right proximal femur as above. Electronically signed by: Alon Pena M.D. 03/01/2023 4:16 PM Chest X-Ray 03/01/23 15:56 SINGLE VIEW CHEST CLINICAL HISTORY: Fall. Right hip fracture. Preoperative examination. FINDINGS: An AP, portable, supine chest radiograph is compared to study dated 08/18/2022. The examination is degraded by portable technique and patient rotation. The heart is enlarged noting atherosclerotic calcification of the thoracic aorta. The pulmonary vasculature is noncongested. Chronic interstitial thickening similar to previous. Scarring/atelectasis is noted at the lung bases. No airspace consolidation or large pleural effusion is identified. No pneumothorax is seen. The skeletal structures are osteopenic. The bony thorax is grossly intact. Arthritic change is seen in the shoulders. IMPRESSION: Cardiomegaly with no acute cardiopulmonary abnormality identified. ACT 112: Negative or not required by law. Electronically signed by: Alon Pena M.D. 03/01/2023 4:21 PM ECG Additional Comments: Obtaining ECG at the time of admission Code Status & VTE Plan Code Status DNR/DNI VTE Prophylaxis Plan VTE Prophylaxis will be ordered: Yes Supervising Physician Co-Signing Physician Notes I personally saw and examined the patient. I verified all luciano points and agree with Lalo Robles PA-C with the following exceptions and/or additions: 87 year old male presents with right proximal femur fracture after mechanical fall. No prior [place] or stroke. Reportedly no chest pain or shortness of breath on exertion prior to fall. O/E A&Ox3, Shortened and externally rotated right leg, NV intact distally, skin intact, HS RRR, no murmurs, Chest CTAB, Abdo SNT A/P Right osteoporotic proximal femur fracture - recently d/c alendronate, consider repeat DEXA as outpatient. Vitamin D level. NPO after midnight. Consult orthopedics. Revised cardiac risk index 0, patient is medically optimized for surgery at this time. Parkinsonism - cogwheel rigidity on exam, likely contributed towards fall. Continue sinemet. If significantly off baseline after surgery consider neuro consult. PG Care Time/CCT Total # of Minutes Spent Total Time Spent with Patient: Total time spent is greater than 50% in coordination of care (as documented) at patient's floor/unit and/or counseling patient: Coding [place] [address] INT INP/OBS CARE 2/55MIN Patient Type Established Medical Decision Making Moderate Complexity Diagnoses Fall from standing W19.XXXA Closed right hip fracture S72.001A Parkinsonism G20 Hypertension I10 Osteoporotic fracture of right hip M80.051A
[2023-03-01] MEDS: LIDOCAINE 5% 1 PATCH TD SCH (18:22)
--- NOTE | 2023-03-01 18:22 | XRay Report ---
RIGHT FEMUR 2 VIEWS CLINICAL HISTORY: Right femoral fracture. FINDINGS: AP and crosstable lateral views of the right femur are correlated with radiographs of the r ight hip performed earlier the same day 03/01/2023. Again seen is a displaced spiral fracture of the i ntertrochanteric/subtrochanteric right proximal femur. The fragments are displaced by up to 4.5 cm, a nd there is overriding of fragments. There is medial displacement of the lesser trochanter. Overlying soft tissue edema is observed. The distal right femur appears intact. A right knee arthroplasty is i n place. The visualized right hemipelvis appears intact. Moderate arthritic change and joint space na rrowing is seen in the right hip. Fiducials project of the prostate gland. IMPRESSION: Unchanged appearance of a displaced and overriding spiral fracture of the intertrochanter ic/subtrochanteric right proximal femur. Electronically signed by: Alon Pena M.D. 03/01/2023 6:21 PM
[2023-03-01] MEDS ORDERED: bisacodyL 10 MG SUPP PR PRN (20:52)
[2023-03-01] MEDS ORDERED: MAGNESIUM HYDROXIDE SUSP 30 ML UDC PO PRN (20:52)
[2023-03-01] MEDS ORDERED: NALOXONE HCL 0.4 MG/1 ML VIAL/CARP IV PRN (20:52)
[2023-03-01] MEDS: CARBIDOPA/LEVODOPA 25/100MG TAB PO SCH (21:55)
[2023-03-01] MEDS: DOCUSATE SODIUM/SENNA 50/8.6MG TAB PO SCH (21:55)
[2023-03-02 06:19] LABS: Basophils # (auto) 0.01 K/uL (0-0.2); Basophils % (auto) 0.1 %; Eosinophils # (auto) 0.01 K/uL (0-0.50); Eosinophils % (auto) 0.1 %; Hematocrit (blood only) 28.9 % (42.0-52.0); Hemoglobin 9.8 g/dl (14.0-18.0); Immature Granulocytes # (auto) 0.03 K/uL (0.01-0.20); Immature Granulocytes % (auto) 0.4 %; Lymphocytes # (auto) 0.46 K/uL (1.2-3.4); Lymphocytes % (auto) 6.6 %; Mean Corpuscular Hemoglobin 30.8 pg (25.0-34.0); Mean Corpuscular Hgb Conc 33.9 g/dL (32.0-36.0); Mean Corpuscular Volume 90.9 fL (80.0-100.0); Mean Platelet Volume 10.5 fL (9.4-12.4); Monocytes # (auto) 0.53 K/uL (0.11-0.59); Monocytes % (auto) 7.6 %; Neutrophils # (auto) 5.94 K/uL (1.40-6.50); Neutrophils % (auto) 85.2 %; Platelet Count 144 K/uL (130-400); RDW Coefficient of Variation 12.8 % (11.5-14.5); RDW Standard Deviation 42.5 fL (36.4-46.3); Red Blood Count 3.18 M/uL (4.70-6.10); White Blood Count 6.98 K/ul (4.8-10.8)
[2023-03-02 06:31] LABS: BUN Creatinine Ratio 30.2 (10-20); Calcium 8.1 mg/dl (8.6-10.3); Creatinine Clr Calc Pharmacy 56.6 ml/min; Est GFR (African American) 90.4 ml/min; Magnesium 1.8 mg/dl (1.7-2.4); Potassium 4.1 mmol/L (3.5-5.1)
[2023-03-02 06:50] LABS: Prothrombin Time 11.4 Seconds (9.0-12.0)
[2023-03-02] MEDS ORDERED: LIDOCAINE 1% LOCAL 20 ML VIAL ONE (07:05)
[2023-03-02] MEDS ORDERED: BUPIVACAINE 0.5 % 5 MG/1 ML MPF 30ML VIAL ONE (07:05)
[2023-03-02] MEDS ORDERED: fentaNYL citrate PF 100 MCG/2 ML VIAL ONE ×2 (07:22→09:42)
[2023-03-02] MEDS ORDERED: MIDAZOLAM HCL 1 MG/ML 2ML VIAL ONE (07:22)
[2023-03-02] MEDS ORDERED: LIDOCAINE 2% MPF LOCAL 5 ML VIAL ONE (07:23)
[2023-03-02] MEDS ORDERED: PROPOFOL IV EMULSION 10 MG/ML 20 ML VIAL IV ONE (07:23)
[2023-03-02] MEDS ORDERED: ONDANSETRON INJ 2 MG/ML 2 ML VIAL ONE (07:27)
[2023-03-02] MEDS ORDERED: ROCURONIUM BROMIDE 10 MG/ML 5 ML VIAL IV ONE ×2 (07:27→07:28)
[2023-03-02] MEDS ORDERED: DEXAMETHASONE SOD INJ 4 MG/ML VIAL ONE (07:27)
[2023-03-02] MEDS ORDERED: SODIUM CHLORIDE 0.9% PF INJ 10 ML VIAL ONE (07:29)
[2023-03-02] MEDS ORDERED: ePHEDrine sulfate 50 MG/ML AMP ONE (07:29)
--- NOTE | 2023-03-02 07:52 | Orthopedic Consultation ---
Date of Consultation March 02, 2023 Assessment & Plan (1) Fracture, subtrochanteric, right femur, closed: He has a displaced right hip subtrochanteric femur fracture. I would recommend long cephalomedullary nailing. He is in agreement. Risks, benefits, and alternatives of surgery were explained in detail. The surgical procedure, as well as postoperative recovery and rehabilitation, was also explained in detail. Risks include bleeding; infection; damage to surrounding structures such as nerves, blood vessels, and tendons that run in the area; persistent pain or stiffness; nonunion; malunion; hardware failure; painful prominent hardware requiring removal; or need for further surgery. The patient understands all of this and wishes to proceed with surgery. Informed consent was obtained. History of Present Illness Reason for Consultation: Right hip fracture Attending Physician: Roxanna Chapman MD History of Present Illness Mr. Robert is an 87-year-old male who injured his right hip during a ground- level fall yesterday. He normally ambulates with a walker, but did not have his walker with him at the time, and he lost his balance. He denies any dizziness or loss of consciousness. He had immediate pain and inability to bear weight on his right leg. He has a previous history of right total knee in July [address] Thomas. Allergies Allergy/AdvReac Type Severity Reaction Status Date / Time oxycodone AdvReac Mild NAUSEA AND Verified 10/15/22 13:38 VOMITING Home Medications Medication Instructions Recorded Confirmed Type candesartan 4 mg tablet 4 mg PO DAILY 08/27/19 03/01/23 History cholecalciferol (vitamin D3) 125 125 mcg PO DAILY 07/26/21 03/01/23 History mcg (5,000 unit) capsule ipratropium bromide 42 mcg (0.06 2 spray intranasal DAILY #45 mL 10/11/22 03/01/23 Rx %) nasal spray carbidopa 25 mg-levodopa 100 mg 1 tab PO TID 03/01/23 03/01/23 History tablet cyanocobalamin (vitamin B-12) 1,000 mcg PO DAILY 03/01/23 03/01/23 History 1,000 mcg capsule Patient History Medical History (Updated 03/02/23 @ 07:56 by Louie Aldana M.D.) Arthritis Benign prostatic hypertrophy Breast cancer in male hx of Degenerative joint disease Encounter for pre-operative examination Hip bursitis, left Hypertension Lumbar spondylosis Prostate cancer (08/17/14) Surgical History History of appendectomy History of colonoscopy History of knee replacement RT S/P mastectomy S/P tonsillectomy and adenoidectomy Family History Father Heart disease Hypertension Mother Ovarian cancer Cancer Allergies Other No pertinent family history in first degree relatives Denies family history of Hearing loss No family history of adverse response to anesthesia No family history of bleeding disorder Stroke Asthma Social History Smoking Status: Never smoker Tobacco Type: Pipe Second Hand Exposure: Yes ( A CHILD); Hx Alcohol Use: Yes Alcohol type: wine Alcohol Intake Frequency: 4 or More x per/Week Hx Substance Use: No Preferred Language: Wolof Communication Ability: Effective Social Sciences Department Chair Required: No Beliefs That Will Affect Care: None marital status: Current Living Situation: Spouse Current Living Situation Comment: [facility] current occupational status: retired Other Information That Helps Us Care for You: No Feels Safe at Home: Yes Safety Concerns: Feels Safe At This Time Assistive Devices: Walker Physical Exam Physical Exam: Examination of the right hip shows no open wounds. There is shortening and external rotation of the leg. There is moderate swelling and tenderness to palpation of the thigh and hip area. Compartments are soft and compressible. Intact ankle dorsiflexion and plantarflexion. Results & Data Vital Signs (Past 12 Hours) Vital Signs Temp Pulse Resp BP Pulse Ox Pulse Ox O2 Del Method 03/01/23 20:35 95 03/01/23 20:35 36.4 C L 73 16 171/87 H 95 Room Air O2 Del Method 03/01/23 20:35 Room Air 03/01/23 20:35 Diagnostic Findings Right hip and femur films were reviewed. They show a subtrochanteric femur fracture with flexion of the proximal femoral segment. No obvious fracture extension into the femoral diaphysis. There is a total knee arthroplasty distally. (1) Fracture, subtrochanteric, right femur, closed Encounter type: initial encounter Fracture alignment: displaced Qualified Code(s): S72.21XA - Displaced subtrochanteric fracture of right femur, initial encounter for closed fracture
[2023-03-02] MEDS ORDERED: ATROPINE SULFATE 0.1 MG/ML 10ML SYR IV PRN (08:08)
[2023-03-02] MEDS ORDERED: LABETALOL HCL IV 5 MG/ML 20ML IV PRN (08:08)
[2023-03-02] MEDS ORDERED: KETOROLAC 30 MG/ML VIAL IV PRN (08:08)
[2023-03-02] MEDS ORDERED: ONDANSETRON INJ 2 MG/ML 2 ML VIAL IV PRN (08:08)
[2023-03-02] MEDS ORDERED: HYDROmorphone INJ 1 MG/ML SYRINGE IV PRN (08:08)
[2023-03-02] MEDS ORDERED: ceFAZolin 330 MG/ML 1 GM VIAL ONE (08:29)
[2023-03-02] MEDS: FAMOTIDINE 20 MG in SYRINGE 3 ML IV SCH (08:36)
[2023-03-02] MEDS: CARBIDOPA/LEVODOPA 25/100MG TAB PO SCH ×3 (08:36→19:51)
[2023-03-02] MEDS: LIDOCAINE 5% 1 PATCH TD SCH (08:37)
[2023-03-02] MEDS ORDERED: PHENYLEPHRINE 100MCG/ML 5ML SYR ONE (08:43)
[2023-03-02] MEDS ORDERED: SUGAMMADEX SODIUM 200 MG/2 ML VIAL IV ONE (08:44)
[2023-03-02] MEDS ORDERED: ceFAZolin 2000MG 2,000 MG/15 ML SYR IV ONE (09:07)
--- NOTE | 2023-03-02 10:23 | Operative Report ---
Post Operative Report Pre & Post Diagnosis Operation Date: 03/02/23 07:30 Pre-Op Diagnosis: Right hip displaced spiral subtrochanteric femur fracture Post-Op Diagnosis: Right hip displaced spiral subtrochanteric femur fracture I identified the patient and participated in the time-out.: Yes Procedure Operation Date: 03/02/23 07:30 Actual Procedures Right hip long cephalomedullary nailing of displaced spiral subtrochanteric femur fracture (35075) - Louie Aldana M.D. Surgeon Louie Aldana MD Cook Vacuum Kettle Kristian Quach PA-C Estimated Blood Loss 100 Findings Consistent with Post-Op Diagnosis Specimens None Drains None Anesthesia Type General Complications none Disposition Disposition: Recovery Room Indications Mr. Robert is an 87-year-old male who injured his right hip during a ground- level fall yesterday. History, clinical exam, and imaging were consistent with the above diagnosis. Risks, benefits, and alternatives of surgery were explained in detail. The patient understood all this and wished to proceed. Description of Procedure Implants: Synthes Long ([id number]) 130 degree Trochanteric Fixation Nail, 11mm helical blade, 5mm distal locking screws x 3 Patient was identified in the preoperative holding area. Operative extremity was marked. Patient was then brought back to the operating room, and general anesthesia was induced without complication. Appropriate weight-based dose of Ancef was infused intravenously for antibiotic prophylaxis. Due to the significant subtrochanteric extension of the fracture with flexion of the proximal fragment, I positioned the patient lateral on a radiolucent table to aid in fracture reduction. Fracture reduction was then performed under fluoroscopic imaging. Once acceptable reduction had been achieved, the right hip was then prepped and draped in a standard sterile fashion using Chlorhexidine prep. I first made an incision in the lateral thigh directly over the zone of the spiral subtrochanteric fracture. I incised through the iliotibial band and bluntly dissected through the quadriceps muscle down to the femoral shaft. Fracture was reduced by a combination of flexion, traction, and rotation of the distal leg. I then held the reduction with a large reduction clamp. Direct palpation and fluoroscopic imaging was used to verify acceptable reduction. I then made a separate incision just proximal to the greater trochanter in line with the femoral shaft axis, and split the fibers of the iliotibial band. I then bluntly palpated down to the greater trochanter and inserted the guidewire down to the tip of the greater trochanter. It was appropriately positioned on AP and lateral images, and then driven into the proximal femur. I then inserted the soft tissue protector down to the tip of the greater trochanter and then passed the entry reamer over top of the guidewire. It was advanced down towards the lesser trochanter to open the proximal femur. I then inserted a ball-tipped guidewire down the femoral shaft towards the knee. Once it was in appropriate position, an appropriate length nail was selected. The femoral canal was then sequentially reamed up to 12.5 mm diameter to allow passage of an 11 mm diameter nail. The Synthes long TFN was then attached to the targeting arm and inserted into the proximal femur. I malleted it down to an appropriate depth for proper trajectory of the helical blade into the femoral head. Once the nail was at an appropriate depth, I then attached the targeting guide for the helical blade on to the targeting arm. Incision was made in line with the guide through the skin and iliotibial band. The guide sleeve was placed against the lateral cortex of the femur. Guidewire was then inserted through the guide and up into the femoral neck and head. I verified proper placement and trajectory under both AP and lateral images. I advanced the guidewire to the subchondral bone in the femoral head and verified proper depth on orthogonal images. I then measured the depth off of the guidewire. The drill for the helical blade was then set at an appropriate level to match the measured length. The drill was then advanced to the set depth. An appropriate length helical blade was selected and malleted into place over the guidewire. I then deployed the set screw proximally to prevent rotation of the helical blade during fracture compression. The proximal targeting arm was then removed. I then proceeded with distal locking screw insertion at the knee. "Perfect circles" was achieved with fluoroscopy for targeting of the distal static locking screw hole through the distal end of the nail. Both cortices of the femur were drilled through this distal locking hole. An appropriate length distal locking screw was selected and inserted. I decided to insert a second distal locking screw through the oblong distal hole in static mode for additional longitudinal stabilization due to the comminution of the fracture in the subtrochanteric region. The proximal end of the oblong hole was targeted, and both cortices of the femur were drilled. An appropriate length distal locking screw was then selected and inserted. Due to the inherently unstable spiral fracture pattern, and inserted a third distal locking screw through the second static locking hole. Final fluoroscopic images were then obtained to ensure proper hardware placement, screw length, and fracture reduction. The wounds were then copiously irrigated with sterile saline. I then closed the iliotibial band and deep dermal tissue with #0 Vicryl suture. Subcutaneous tissues closed with 3-0 Vicryl suture, and skin was closed with lisa. Sterile dressings were then applied with Xeroform, sterile gauze, and foam tape. Drapes were then removed and traction apparatus was disconnected. The patient was awakened from general anesthesia, transferred over to the stretcher, and taken to the Post Anesthesia Care Unit in stable condition. There were no immediate complications from the procedure. I was present and scrubbed for the entire procedure. Due to the complex nature of the procedure, the entire surgery was performed with the operational assistance of Kristian Quach PA-C. The mailroom assistant, under direct supervision, was involved in the performance of all aspects of the surgical procedure including hemostasis, tissue incision and retraction, instrument management, patient positioning, and wound closure. I attest to the content of the Intraoperative Record and any orders documented therein. Any exceptions are noted below.
--- NOTE | 2023-03-02 10:59 | Anesthesiology Progress Note ---
Date of Service March 02, 2023 Anesthesia Post Procedure Vital Signs Vital Signs: Temp Pulse Pulse Pulse Pulse Resp BP 03/02/23 10:55 37.0 C 81 15 03/02/23 10:45 80 14 03/02/23 10:35 77 14 03/02/23 10:25 36.9 C 75 14 03/01/23 20:35 03/01/23 20:35 36.4 C L 73 16 03/01/23 17:30 76 12 140/82 03/01/23 17:00 73 14 164/85 H 03/01/23 16:30 64 12 147/88 H 03/01/23 16:01 61 14 163/89 H 03/01/23 15:19 56 L 03/01/23 15:30 60 14 151/78 H 03/01/23 15:04 36.5 C 62 18 03/01/23 15:04 62 18 174/116 H BP Pulse Ox Pulse Ox O2 Del Method O2 Del Method O2 Flow Rate 03/02/23 10:55 111/64 94 Room Air 03/02/23 10:45 108/70 99 Oxymask 4 03/02/23 10:35 111/72 100 Oxymask 6 03/02/23 10:25 114/64 100 Oxymask 8 03/01/23 20:35 95 Room Air 03/01/23 20:35 171/87 H 95 Room Air 03/01/23 17:30 97 Room Air 03/01/23 17:00 98 Room Air 03/01/23 16:30 99 Room Air 03/01/23 16:01 99 Room Air 03/01/23 15:19 03/01/23 15:30 97 Room Air 03/01/23 15:04 174/116 H 99 Room Air 03/01/23 15:04 99 Room Air Pain Intensity Right Hip: Pain Intensity: 3 Transfer of Care Handoff Completed per policy Notes Mental Status: alert / awake / arousable Patient Amnestic to Procedure: Yes Nausea / Vomiting: adequately controlled Pain: adequately controlled Airway Patency, RR, SpO2: stable & adequate BP & HR: stable & adequate Hydration State: stable & adequate Anesthetic Complications: no major complications apparent
--- NOTE | 2023-03-02 12:41 | Fluoroscopy Report ---
FL femur RT 2V CLINICAL HISTORY: TROCH NAIL RIGHT FEMURacute right femoral fracture COMPARISON STUDY: Femur radiographs of same day at 8:40 AM FLUOROSCOPY TIME: 136.5 seconds FLUOROSCOPY IMAGES: 4 EXPOSURE DOSE: 42.16 mGy Air Kerma FINDINGS: Intertrochanteric nail with medullary aliza fixating the acute proximal right femoral fractur e demonstrates satisfactory alignment. 3 distal cannulated screws. Total joint arthroplasty of the kn ee is partially imaged. Expected postoperative soft tissue swelling with deep tissue air. IMPRESSION: Fluoroscopic assistance as above. ACT 112: Negative or not required by law. Electronically signed by: Eleuterio Zuñiga M.D. 03/02/2023 12:39 PM
--- NOTE | 2023-03-02 12:49 | XRay Report ---
XR femur RT 2V routine HISTORY: 87 years-old Male Postop acute fracture of the proximal right femur COMPARISON: 03/01/2023 TECHNIQUE: 2 views the right femur FINDINGS: Intertrochanteric nail with medullary aliza fixating the acute proximal right femoral fracture demonstr ates satisfactory alignment. 3 distal cannulated screws. Total joint arthroplasty of the knee again n oted. Expected postoperative soft tissue swelling with deep tissue air with lateral skin lisa. IMPRESSION: Status post ORIF of the acute and comminuted proximal right femoral fracture which demons trates satisfactory alignment. ACT 112: Negative or not required by law. The above report was generated using voice recognition software. It may contain grammatical, syntax o r spelling errors. Electronically signed by: Eleuterio Zuñiga M.D. 03/02/2023 12:48 PM
--- NOTE | 2023-03-02 13:01 | Electrocardiogram Report ---
Test Reason : Blood Pressure : / mmHG Vent. Rate : 074 BPM Atrial Rate : 074 BPM P-R Int : 194 ms QRS Dur : 058 ms QT Int : 392 ms P-R-T Axes : 059 040 052 degrees QTc Int : 435 ms Poor data quality, interpretation may be adversely affected Sinus rhythm with Premature ventricular complexes Poor R wave progression, consider anterior [place] vs. lead placement vs. LVH Abnormal ECG When compared with ECG of 06-JUL-2015 10:36, Questionable change in QRS duration Anterior infarct is now Present Confirmed by Obinna Gomez ([id number]) on 03/02/2023 1:01:21 PM Referred By: REFERRED SELF Confirmed By:Obinna Gomez
[2023-03-02] MEDS ORDERED: oxyCODONE HCL IR 5 MG TAB (IMMEDIATE RELEASE) PO PRN (15:02)
[2023-03-02] MEDS ORDERED: ACETAMINOPHEN 500 MG TAB PO PRN (15:24)
[2023-03-02] MEDS: IBUPROFEN 600 MG TAB PO SCH ×2 (15:38→20:34)
--- NOTE | 2023-03-02 16:04 | Hospitalist Progress Note ---
Date of Service March 02, 2023 Assessment & Plan (1) Fall from standing: Plan: -Sustained a closed Displaced and overriding spiral fracture of the intertrochanteric/subtrochanteric right proximal femur falling off his kitchen chair while reaching for his walker Status post repair of femur fracture today 03/02. -No other acute trauma, did not hit his head or lose consciousness and is not on anticoagulation (2) Closed right hip fracture: Plan: Patient had surgery done today: Right hip long cephalomedullary nailing of displaced spiral subtrochanteric femur fracture Postsurgical pain, anticoagulation will be managed by surgical team (3) Parkinsonism: Plan: -Continue Carbidopa-levodopa (4) Hypertension: Plan: -Stable Hold candesartan May be resumed tomorrow after BMP reviewed (5) Osteoporotic fracture of right hip: Plan Admission and Anticipated Discharge Date Admission Date: March 01, 2023 Subjective Patient came back from surgery earlier today. Does not complain of pain. No chest pain or shortness of breath. Review of Systems Review of Systems: All systems reviewed & are unremarkable except as noted in Subjective Physical Exam Physical Exam: General: Awake, conversant Heart: S1, S2/regular rate and rhythm, no murmur rubs or gallops Lungs: Clear to auscultation bilaterally. Normal effort Abdomen: Soft/nontender/nondistended. No hepatosplenomegaly Extremities: No clubbing/cyanosis. No edema Behavior: Appropriate, cooperative Results & Data Results & Data Vital Signs (Past 12 Hours) Vital Signs Temp Pulse Pulse Resp BP Pulse Ox O2 Del Method 03/02/23 14:11 36.9 C 77 16 106/66 96 Room Air 03/02/23 13:10 36.9 C 82 18 99/62 L 94 Room Air 03/02/23 12:19 85 16 111/72 94 Room Air 03/02/23 11:45 81 18 109/67 95 Room Air 03/02/23 11:17 36.9 C 83 17 107/69 95 Room Air 03/02/23 11:05 82 20 112/60 94 Room Air 03/02/23 10:55 37.0 C 81 15 111/64 94 Room Air 03/02/23 10:45 80 14 108/70 99 Oxymask 03/02/23 10:35 77 14 111/72 100 Oxymask 04/22/23 10:25 36.9 C 75 14 114/64 100 Oxymask O2 Flow Rate 03/02/23 14:11 03/02/23 13:10 03/02/23 12:19 03/02/23 11:45 03/02/23 11:17 03/02/23 11:05 03/02/23 10:55 03/02/23 10:45 4 03/02/23 10:35 6 03/02/23 10:25 8 Laboratory Results Abnormal lab results 03/01/23 03/02/23 03/02/23 Range/Units 15:34 05:37 05:37 RBC 3.18 L (4.70-6.10) M/uL Hgb 9.8 L (14.0-18.0) g/dl Hct 28.9 L (42.0-52.0) % Lymph # (Auto) 0.46 L (1.2-3.4) K/uL Sodium 134 L 133 L (136-145) mmol/L BUN 25 H 26 H (6-23) mg/dl BUN/Creatinine Ratio 27.5 H 30.2 H (10-20) Glucose 111 H 104 H (70-99(Fasting)) mg/dl Calcium 8.1 L (8.6-10.3) mg/dl ALT 3 L (7-52) U/L Globulin 2.4 L (2.5-4.0) gm/dl Diagnostic Findings Hip/Pelvis X-Ray 03/01/23 15:22 SINGLE VIEW PELVIS; 2 VIEWS RIGHT HIP CLINICAL HISTORY: Fall. Right hip injury. FINDINGS: An AP supine view of the pelvis with AP and crosstable lateral views of the right hip are compared to study dated 03/15/2022. The skeletal structures are osteopenic. There is no radiographic evidence of acute fracture involving the bony pelvis or the left hip. There is a displaced spiral fracture of the intertrochanteric/subtrochanteric right proximal femur. The fragments are displaced by up to 4.5 cm, and there is overriding of fragments. There is medial displacement of the lesser trochanter. Overlying soft tissue edema is observed. Fiducials project over the prostate gland. Moderate arthritic change and joint space narrowing is noted in the hips. Lumbosacral spondylosis is partially imaged. IMPRESSION: Displaced and overriding spiral fracture of the intertrochanteric/subtrochanteric right proximal femur as above. Electronically signed by: Alon Pena M.D. 03/01/2023 4:16 PM Chest X-Ray 03/01/23 15:56 SINGLE VIEW CHEST CLINICAL HISTORY: Fall. Right hip fracture. Preoperative examination. FINDINGS: An AP, portable, supine chest radiograph is compared to study dated 08/18/2022. The examination is degraded by portable technique and patient rotation. The heart is enlarged noting atherosclerotic calcification of the thoracic aorta. The pulmonary vasculature is noncongested. Chronic interstitial thickening similar to previous. Scarring/atelectasis is noted at the lung bases. No airspace consolidation or large pleural effusion is identified. No pneumothorax is seen. The skeletal structures are osteopenic. The bony thorax is grossly intact. Arthritic change is seen in the shoulders. IMPRESSION: Cardiomegaly with no acute cardiopulmonary abnormality identified. ACT 112: Negative or not required by law. Electronically signed by: Alon Pena M.D. 03/01/2023 4:21 PM Femur X-Ray 03/01/23 17:08 RIGHT FEMUR 2 VIEWS CLINICAL HISTORY: Right femoral fracture. FINDINGS: AP and crosstable lateral views of the right femur are correlated with radiographs of the right hip performed earlier the same day 03/01/2023. Again seen is a displaced spiral fracture of the intertrochanteric/subtrochanteric right proximal femur. The fragments are displaced by up to 4.5 cm, and there is overriding of fragments. There is medial displacement of the lesser trochanter. Overlying soft tissue edema is observed. The distal right femur appears intact. A right knee arthroplasty is in place. The visualized right hemipelvis appears intact. Moderate arthritic change and joint space narrowing is seen in the right hip. Fiducials project of the prostate gland. IMPRESSION: Unchanged appearance of a displaced and overriding spiral fracture of the intertrochanteric/subtrochanteric right proximal femur. Electronically signed by: Alon Pena M.D. 03/01/2023 6:21 PM Femur X-Ray 03/02/23 00:00 FL femur RT 2V CLINICAL HISTORY: TROCH NAIL RIGHT FEMURacute right femoral fracture COMPARISON STUDY: Femur radiographs of same day at 8:40 AM FLUOROSCOPY TIME: 136.5 seconds FLUOROSCOPY IMAGES: 4 EXPOSURE DOSE: 42.16 mGy Air Kerma FINDINGS: Intertrochanteric nail with medullary aliza fixating the acute proximal right femoral fracture demonstrates satisfactory alignment. 3 distal cannulated screws. Total joint arthroplasty of the knee is partially imaged. Expected postoperative soft tissue swelling with deep tissue air. IMPRESSION: Fluoroscopic assistance as above. ACT 112: Negative or not required by law. Electronically signed by: Eleuterio Zuñiga M.D. 03/02/2023 12:39 PM Femur X-Ray 03/02/23 11:17 XR femur RT 2V routine HISTORY: 87 years-old Male Postop acute fracture of the proximal right femur COMPARISON: 03/01/2023 TECHNIQUE: 2 views the right femur FINDINGS: Intertrochanteric nail with medullary aliza fixating the acute proximal right femoral fracture demonstrates satisfactory alignment. 3 distal cannulated screws. Total joint arthroplasty of the knee again noted. Expected postoperative soft tissue swelling with deep tissue air with lateral skin lisa. IMPRESSION: Status post ORIF of the acute and comminuted proximal right femoral fracture which demonstrates satisfactory alignment. ACT 112: Negative or not required by law. The above report was generated using voice recognition software. It may contain grammatical, syntax or spelling errors. Electronically signed by: Eleuterio Zuñiga M.D. 03/02/2023 12:48 PM PG Care Time/CCT Total # of Minutes Spent Total Time Spent with Patient: Total time spent is greater than 50% in coordination of care (as documented) at patient's floor/unit and/or counseling patient: Coding Level of Care Code 15202 SUB INP/OBS CARE 2/35MIN Diagnoses Fall from standing W19.XXXA Closed right hip fracture S72.001A Parkinsonism G20 Hypertension I10 Osteoporotic fracture of right hip M80.051A
[2023-03-02] MEDS: ceFAZolin 2000MG 2,000 MG/15 ML SYR IV SCH ×2 (16:58→23:41)
[2023-03-02] MEDS: ACETAMINOPHEN 500 MG TAB PO SCH ×2 (17:01→23:41)
[2023-03-02] MEDS: DOCUSATE SODIUM/SENNA 50/8.6MG TAB PO SCH (19:50)
[2023-03-03] MEDS: IBUPROFEN 600 MG TAB PO SCH ×4 (03:26→20:22)
[2023-03-03] MEDS ORDERED: MELATONIN 3 MG TAB PO ONE (03:38)
[2023-03-03] MEDS ORDERED: LACTATED RINGER'S 500 ML IV ONE (03:51)
[2023-03-03] MEDS: ACETAMINOPHEN 500 MG TAB PO SCH ×4 (05:30→23:33)
--- NOTE | 2023-03-03 06:02 | Orthopedic Progress Note ---
Date of Service March 03, 2023 Assessment & Plan (1) Fracture, subtrochanteric, right femur, closed: Plan: POD #1 s/p Right hip long cephalomedullary nailing of subtrochanteric femur fracture PT/OT- TTWB right leg with walker DVT proph with RODRÍGUEZ/SCD/ASA Pain currently well controlled, using Tylenol, IBU and Morphine prn break through pain DC Planning: CM consult placed, Anticipate that patient is going to [facility] ([facility]) for rehab upon discharge. Admission and Anticipated Discharge Date Admission Date: March 01, 2023 Subjective POD #1 s/p Right hip long cephalomedullary nailing of subtrochanteric femur fracture Review of Systems Constitutional: no fever and no chills Respiratory: no cough and no dyspnea Cardiovascular: no chest pain, no dyspnea and no orthopnea Gastrointestinal: no abdominal pain, no nausea and no vomiting Physical Exam Physical Exam: Vital Signs Temp 36.9 C 03/03/23 04:41 Pulse 62 03/03/23 04:41 Resp 14 03/03/23 04:41 BP 93/57 L 03/03/23 04:41 Pulse Ox 97 03/03/23 04:41 O2 Del Method Room Air 03/03/23 04:41 O2 Flow Rate 4 03/02/23 10:45 Intake & Output 03/02/23 03/02/23 03/03/23 06:59 18:59 06:59 Intake Total 1200 / 1700 500 / 1700 Output Total 500 / 500 600 / 1050 450 / 1050 Balance -500 / -500 600 / 650 50 / 650 Weight 70.1 kg 70.1 kg Intake: IV 500 / 500 Lactated Ringe r's 500 ml @ 999 500 / 500 mls/hr IV .Q31 M ONE Rx#: [id number] IV Perioperative 1200 / 1200 Output: Urine 500 / 500 500 / 950 450 / 950 Estimated Blood Loss 100 / 100 Other: Weight Measureme nt Method Built in [facility] Constitutional: WD/WN, vitals as above Musculoskeletal: Right hip: dressing is clean and dry, no erythema. mild tenderness anterior hip. able to wiggle toes, ankle plantar/dorsiflexion without pain. calf soft, non- tender. DP palpable. Psychiatric: Orientation: alert, oriented to person and oriented to place Results & Data Vital Signs (Past 12 Hours) Vital Signs Temp Pulse Resp BP BP Pulse Ox O2 Del Method 03/03/23 04:41 36.9 C 62 14 93/57 L 97 Room Air 03/03/23 03:41 36.4 C L 85 18 92/57 L 94 Room Air 03/02/23 22:29 36.7 C 86 14 96/61 L 97 Room Air 03/02/23 19:45 37 C 85 18 101/61 93 Room Air Laboratory Results Laboratory Results WBC 6.98 K/ul (4.8-10.8) 03/02/23 05:37 RBC 3.18 M/uL (4.70-6.10) L 03/02/23 05:37 Hgb 9.8 g/dl (14.0-18.0) L 03/02/23 05:37 Hct 28.9 % (42.0-52.0) L 03/02/23 05:37 MCV 90.9 fL (80.0-100.0) 03/02/23 05:37 MCH 30.8 pg (25.0-34.0) 03/02/23 05:37 MCHC 33.9 g/dL (32.0-36.0) 03/02/23 05:37 RDW Std Deviation 42.5 fL (36.4-46.3) 03/02/23 05:37 RDW Coeff of Jones 12.8 % (11.5-14.5) 03/02/23 05:37 Plt Count 144 K/uL (130-400) 03/02/23 05:37 MPV 10.5 fL (9.4-12.4) 03/02/23 05:37 Immature Gran % (Auto) 0.4 % 03/02/23 05:37 Neut % (Auto) 85.2 % 03/02/23 05:37 Lymph % (Auto) 6.6 % 03/02/23 05:37 Evans % (Auto) 7.6 % 03/02/23 05:37 Eos % (Auto) 0.1 % 03/02/23 05:37 Baso % (Auto) 0.1 % 03/02/23 05:37 Neut # (Auto) 5.94 K/uL (1.40-6.50) 03/02/23 05:37 Lymph # (Auto) 0.46 K/uL (1.2-3.4) L 03/02/23 05:37 Evans # (Auto) 0.53 K/uL (0.11-0.59) 03/02/23 05:37 Eos # (Auto) 0.01 K/uL (0-0.50) 03/02/23 05:37 Baso # (Auto) 0.01 K/uL (0-0.2) 03/02/23 05:37 Immature Gran # (Auto) 0.03 K/uL (0.01-0.20) 03/02/23 05:37 PT 11.4 Seconds (9.0-12.0) 03/02/23 05:37 INR 1.0 (0.9-1.1) 03/02/23 05:37 Sodium 133 mmol/L (136-145) L 03/02/23 05:37 Potassium 4.1 mmol/L (3.5-5.1) 03/02/23 05:37 Chloride 100 mmol/L (98-107) 03/02/23 05:37 Carbon Dioxide 26 mmol/L (21-32) 03/02/23 05:37 Anion Gap 7 (3-11) 03/02/23 05:37 BUN 26 mg/dl (6-23) H 03/02/23 05:37 Creatinine 0.86 mg/dl (0.6-1.4) 03/02/23 05:37 Est Cr Clr Drug Dosing 56.6 ml/min 03/02/23 05:37 Est GFR ( Amer) 90.4 ml/min 03/02/23 05:37 Est GFR (Non-Af Amer) 78.0 ml/min 03/02/23 05:37 BUN/Creatinine Ratio 30.2 (10-20) H 03/02/23 05:37 Glucose 104 mg/dl (70-99(Fasting)) H 03/02/23 05:37 Calcium 8.1 mg/dl (8.6-10.3) L 03/02/23 05:37 Magnesium 1.8 mg/dl (1.7-2.4) 03/02/23 05:37 Total Bilirubin 0.4 mg/dl (0.2-1.0) 03/01/23 15:34 AST 16 U/L (13-39) 03/01/23 15:34 ALT 3 U/L (7-52) L 03/01/23 15:34 Alkaline Phosphatase 52 U/L (34-104) 03/01/23 15:34 Total Protein 6.0 gm/dl (6.0-8.3) 03/01/23 15:34 Albumin 3.6 gm/dl (3.4-5.0) 03/01/23 15:34 Globulin 2.4 gm/dl (2.5-4.0) L 03/01/23 15:34 Albumin/Globulin Ratio 1.5 (0.9-2) 03/01/23 15:34 SARS-CoV-2, RNA, NAAT NEGATIVE (NEGATIVE) 03/01/23 18:33 Blood Type A Positive 03/01/23 21:10 Antibody Screen NEGATIVE 03/01/23 21:10 Femur X-Ray 03/02/23 11:17 XR femur RT 2V routine HISTORY: 87 years-old Male Postop acute fracture of the proximal right femur COMPARISON: 03/01/2023 TECHNIQUE: 2 views the right femur FINDINGS: Intertrochanteric nail with medullary aliza fixating the acute proximal right femoral fracture demonstrates satisfactory alignment. 3 distal cannulated screws. Total joint arthroplasty of the knee again noted. Expected postoperative soft tissue swelling with deep tissue air with lateral skin lisa. IMPRESSION: Status post ORIF of the acute and comminuted proximal right femoral fracture which demonstrates satisfactory alignment. ACT 112: Negative or not required by law. The above report was generated using voice recognition software. It may contain grammatical, syntax or spelling errors. Electronically signed by: Eleuterio Zuñiga M.D. 03/02/2023 12:48 PM (1) Fracture, subtrochanteric, right femur, closed Encounter type: initial encounter Fracture alignment: displaced Qualified Code(s): S72.21XA - Displaced subtrochanteric fracture of right femur, initial encounter for closed fracture
[2023-03-03 06:57] LABS: Hematocrit (blood only) 21.4 % (42.0-52.0); Hemoglobin 7.1 g/dl (14.0-18.0); Mean Corpuscular Hemoglobin 30.7 pg (25.0-34.0); Mean Corpuscular Hgb Conc 33.2 g/dL (32.0-36.0); Mean Corpuscular Volume 92.6 fL (80.0-100.0); Mean Platelet Volume 11.2 fL (9.4-12.4); Platelet Count 118 K/uL (130-400); RDW Coefficient of Variation 13.2 % (11.5-14.5); RDW Standard Deviation 44.5 fL (36.4-46.3); Red Blood Count 2.31 M/uL (4.70-6.10); White Blood Count 7.74 K/ul (4.8-10.8)
[2023-03-03 07:06] LABS: Basophils # (auto) 0.02 K/uL (0-0.2); Basophils % (auto) 0.3 %; Immature Granulocytes # (auto) 0.03 K/uL (0.01-0.20); Immature Granulocytes % (auto) 0.4 %; Lymphocytes # (auto) 0.38 K/uL (1.2-3.4); Lymphocytes % (auto) 4.9 %; Monocytes # (auto) 0.67 K/uL (0.11-0.59); Monocytes % (auto) 8.7 %; Neutrophils # (auto) 6.64 K/uL (1.40-6.50); Neutrophils % (auto) 85.7 %; RBC Morphology Unremarkable
[2023-03-03 07:13] LABS: INR 1.1 (0.9-1.1); Prothrombin Time 11.9 Seconds (9.0-12.0)
[2023-03-03 07:16] LABS: Creatinine Clr Calc Pharmacy 35.3 ml/min; Est GFR (African American) 52.9 ml/min; Est GFR (Non-African American) 45.6 ml/min
[2023-03-03 07:17] LABS: BUN Creatinine Ratio 27.5 (10-20); Calcium 7.9 mg/dl (8.6-10.3); Potassium 4.1 mmol/L (3.5-5.1)
[2023-03-03] MEDS: FAMOTIDINE 20 MG in SYRINGE 3 ML IV SCH (09:04)
[2023-03-03] MEDS: ASPIRIN 325 MG ECTAB PO SCH (09:05)
[2023-03-03] MEDS: CARBIDOPA/LEVODOPA 25/100MG TAB PO SCH ×3 (09:05→19:33)
[2023-03-03] MEDS: LIDOCAINE 5% 1 PATCH TD SCH (09:07)
[2023-03-03] MEDS ORDERED: SODIUM CHLORIDE 0.9% 250 ML IV PRN (09:34)
--- NOTE | 2023-03-03 15:23 | Hospitalist Progress Note ---
Date of Service March 03, 2023 Assessment & Plan (1) Fall from standing: Plan: -Sustained a closed Displaced and overriding spiral fracture of the intertrochanteric/subtrochanteric right proximal femur falling off his kitchen chair while reaching for his walker Status post repair of femur fracture today 03/02. -No other acute trauma, did not hit his head or lose consciousness and is not on anticoagulation (2) Acute blood loss as cause of postoperative anemia: Plan: Hemoglobin 7 today dropped from 11 2 days ago Patient feels weak Transfuse a unit of blood Monitor CBC (3) Closed right hip fracture: Plan: Patient had surgery done 03/02: Right hip long cephalomedullary nailing of displaced spiral subtrochanteric femur fracture Postsurgical pain, anticoagulation will be managed by surgical team (4) Parkinsonism: Plan: -Continue Carbidopa-levodopa Patient is starting to get slightly delirious Ordered Seroquel to encourage healthy sleep-wake cycle (5) Hypertension: Plan: -Stable Hold candesartan Continue to hold candesartan as blood pressure is on the low side due to anemia We will transfuse today Monitor BMP and consider resuming candesartan (6) Osteoporotic fracture of right hip: Plan Admission and Anticipated Discharge Date Admission Date: March 01, 2023 Subjective Patient says that he is feeling well but weak. Per , he was more confused yesterday and is less confused today. He did not sleep well through the night. Review of Systems Review of Systems: All systems reviewed & are unremarkable except as noted in Subjective Physical Exam Physical Exam: General: Awake, conversant Heart: S1, S2/regular rate and rhythm, no murmur rubs or gallops Lungs: Clear to auscultation bilaterally. Normal effort Abdomen: Soft/nontender/nondistended. No hepatosplenomegaly Extremities: No clubbing/cyanosis. No edema Behavior: Appropriate, cooperative Results & Data Results & Data Vital Signs (Past 12 Hours) Vital Signs Temp Pulse Pulse Resp BP BP BP 03/03/23 14:53 36.7 C 77 17 104/67 03/03/23 14:17 36.7 C 73 17 93/51 L 03/03/23 13:17 36.4 C L 71 17 101/63 03/03/23 12:17 36.7 C 74 18 96/59 L 03/03/23 11:47 36.6 C 88 18 104/67 03/03/23 11:32 36.7 C 82 18 96/57 L 03/03/23 11:10 36.6 C 76 18 104/61 03/03/23 09:57 78 96/61 L 03/03/23 08:26 72 18 89/51 L 03/03/23 04:41 36.9 C 62 14 93/57 L 03/03/23 03:41 36.4 C L 85 18 92/57 L Pulse Ox O2 Del Method 03/03/23 14:53 98 03/03/23 14:17 96 03/03/23 13:17 96 03/03/23 12:17 97 03/03/23 11:47 98 03/03/23 11:32 95 03/03/23 11:10 93 03/03/23 09:57 97 Room Air 03/03/23 08:26 94 Room Air 03/03/23 04:41 97 Room Air 03/03/23 03:41 94 Room Air Laboratory Results Abnormal lab results 03/01/23 03/03/23 03/03/23 Range/Units 21:10 06:09 06:09 RBC 2.31 L (4.70-6.10) M/uL Hgb 7.1 L (14.0-18.0) g/dl Hct 21.4 L (42.0-52.0) % Plt Count 118 L (130-400) K/uL Neut # (Auto) 6.64 H (1.40-6.50) K/uL Lymph # (Auto) 0.38 L (1.2-3.4) K/uL Sandoval # (Auto) 0.67 H (0.11-0.59) K/uL Sodium 132 L (136-145) mmol/L BUN 38 H (6-23) mg/dl BUN/Creatinine Ratio 27.5 H (10-20) Glucose 110 H (70-99(Fasting)) mg/dl Calcium 7.9 L (8.6-10.3) mg/dl Crossmatch See Detail PG Care Time/CCT Total # of Minutes Spent Total Time Spent with Patient: Total time spent is greater than 50% in coordination of care (as documented) at patient's floor/unit and/or counseling patient: Coding Level of Care Code 43791 SUB INP/OBS CARE 2/35MIN Diagnoses Fall from standing W19.XXXA Acute blood loss as cause of postoperative anemia D62 Closed right hip fracture S72.001A Parkinsonism G20 Hypertension I10 Osteoporotic fracture of right hip M80.051A
[2023-03-03] MEDS: DOCUSATE SODIUM/SENNA 50/8.6MG TAB PO SCH (19:33)
[2023-03-03] MEDS: QUEtiapine FUMARATE 25 MG TABLET PO SCH (19:37)
[2023-03-04] MEDS: IBUPROFEN 600 MG TAB PO SCH ×4 (04:09→20:30)
[2023-03-04] MEDS: ACETAMINOPHEN 500 MG TAB PO SCH ×3 (05:41→18:36)
--- NOTE | 2023-03-04 07:24 | Orthopedic Progress Note ---
Date of Service March 04, 2023 Assessment & Plan (1) Fracture, subtrochanteric, right femur, closed: Plan: POD #2 s/p Right hip long cephalomedullary nailing of subtrochanteric femur fracture PT/OT- TTWB right leg with walker DVT proph with RODRÍGUEZ/SCD/ASA Pain currently well controlled, using Tylenol, IBU and Morphine prn break through pain DC Planning: CM consult placed, Anticipate that patient is going to [facility] ([facility]) for rehab upon discharge. acute blood loss anemia- H/H pending this am, dropped to 7 yesterday morning and was transfused 1 unit, being managed by primary team ortho to sign off at this time, please call [phone] to schedule post op appt with Dr Aldana 12-14 days after surgery. d/c instructions placed in chart. Admission and Anticipated Discharge Date Admission Date: March 01, 2023 Subjective POD #2 s/p Right hip long cephalomedullary nailing of subtrochanteric femur fracture Review of Systems Constitutional: no fever and no chills Respiratory: no cough and no dyspnea Cardiovascular: no chest pain, no dyspnea and no orthopnea Gastrointestinal: no abdominal pain, no nausea and no vomiting Physical Exam Physical Exam: Vital Signs Temp 37.1 C 03/04/23 07:03 Pulse 80 03/04/23 07:03 Resp 16 03/04/23 07:03 BP 102/63 03/04/23 07:03 Pulse Ox 96 03/04/23 07:03 O2 Del Method Room Air 03/04/23 07:03 O2 Flow Rate 4 03/02/23 10:45 Intake & Output 03/03/23 03/04/23 03/04/23 18:59 06:59 18:59 Intake Total 790 / 1710 920 / 1710 Output Total 600 / 600 Balance 790 / 1110 320 / 1110 Intake: Oral 480 / 1400 920 / 1400 Intake (Blood Pr oduct) Amt 310 / 310 Packed Cells, Leukoreduced 310 / 310 Unit [id number] Output: Urine 600 / 600 Other: # Unmeasured Voi ds 1 Constitutional: WD/WN, vitals as above Musculoskeletal: Right hip: proximal hip dressing is clean and dry, no erythema. distal 3 incisions well approximated with lisa, no drainage noted. mild tenderness anterior hip. able to wiggle toes, ankle plantar/dorsiflexion without pain. calf soft, non-tender. DP palpable. Psychiatric: Orientation: alert, oriented to person and oriented to place Results & Data Vital Signs (Past 12 Hours) Vital Signs Temp Pulse Resp BP Pulse Ox O2 Del Method 03/04/23 07:03 37.1 C 80 16 102/63 96 Room Air 03/03/23 23:36 36.7 C 65 16 93/58 L 97 Room Air 03/03/23 22:46 37.1 C 87 18 110/63 93 Room Air Laboratory Results Laboratory Results WBC 7.74 K/ul (4.8-10.8) 03/03/23 06:09 RBC 2.31 M/uL (4.70-6.10) L 03/03/23 06:09 Hgb 7.1 g/dl (14.0-18.0) L 03/03/23 06:09 Hct 21.4 % (42.0-52.0) L 03/03/23 06:09 MCV 92.6 fL (80.0-100.0) 03/03/23 06:09 MCH 30.7 pg (25.0-34.0) 03/03/23 06:09 MCHC 33.2 g/dL (32.0-36.0) 03/03/23 06:09 RDW Std Deviation 44.5 fL (36.4-46.3) 03/03/23 06:09 RDW Coeff of Jones 13.2 % (11.5-14.5) 03/03/23 06:09 Plt Count 118 K/uL (130-400) L 03/03/23 06:09 MPV 11.2 fL (9.4-12.4) 03/03/23 06:09 Immature Gran % (Auto) 0.4 % 03/03/23 06:09 Neut % (Auto) 85.7 % 03/03/23 06:09 Lymph % (Auto) 4.9 % 03/03/23 06:09 [place] % (Auto) 8.7 % 03/03/23 06:09 Eos % (Auto) 0.0 % 03/03/23 06:09 Baso % (Auto) 0.3 % 03/03/23 06:09 Neut # (Auto) 6.64 K/uL (1.40-6.50) H 03/03/23 06:09 Lymph # (Auto) 0.38 K/uL (1.2-3.4) L 03/03/23 06:09 [place] # (Auto) 0.67 K/uL (0.11-0.59) H 03/03/23 06:09 Eos # (Auto) 0.00 K/uL (0-0.50) 03/03/23 06:09 Baso # (Auto) 0.02 K/uL (0-0.2) 03/03/23 06:09 Immature Gran # (Auto) 0.03 K/uL (0.01-0.20) 03/03/23 06:09 RBC Morphology Unremarkable 03/03/23 06:09 PT 11.9 Seconds (9.0-12.0) 03/03/23 06:09 INR 1.1 (0.9-1.1) 03/03/23 06:09 Sodium 132 mmol/L (136-145) L 03/03/23 06:09 Potassium 4.1 mmol/L (3.5-5.1) 03/03/23 06:09 Chloride 99 mmol/L (98-107) 03/03/23 06:09 Carbon Dioxide 28 mmol/L (21-32) 03/03/23 06:09 Anion Gap 5 (3-11) 03/03/23 06:09 BUN 38 mg/dl (6-23) H 03/03/23 06:09 Creatinine 1.38 mg/dl (0.6-1.4) D 03/03/23 06:09 Est Cr Clr Drug Dosing 35.3 ml/min 03/03/23 06:09 Est GFR ( Amer) 52.9 ml/min 03/03/23 06:09 Est GFR (Non-Af Amer) 45.6 ml/min 03/03/23 06:09 BUN/Creatinine Ratio 27.5 (10-20) H 03/03/23 06:09 Glucose 110 mg/dl (70-99(Fasting)) H 03/03/23 06:09 Calcium 7.9 mg/dl (8.6-10.3) L 03/03/23 06:09 Magnesium 1.8 mg/dl (1.7-2.4) 03/02/23 05:37 Total Bilirubin 0.4 mg/dl (0.2-1.0) 03/01/23 15:34 AST 16 U/L (13-39) 03/01/23 15:34 ALT 3 U/L (7-52) L 03/01/23 15:34 Alkaline Phosphatase 52 U/L (34-104) 03/01/23 15:34 Total Protein 6.0 gm/dl (6.0-8.3) 03/01/23 15:34 Albumin 3.6 gm/dl (3.4-5.0) 03/01/23 15:34 Globulin 2.4 gm/dl (2.5-4.0) L 03/01/23 15:34 Albumin/Globulin Ratio 1.5 (0.9-2) 03/01/23 15:34 25-OH Vitamin D Total 52.6 ng/ml (30-100) 03/03/23 06:09 SARS-CoV-2, RNA, NAAT NEGATIVE (NEGATIVE) 03/01/23 18:33 Blood Type A Positive 03/01/23 21:10 Blood Type Recheck A Positive 03/03/23 06:09 Antibody Screen NEGATIVE 03/01/23 21:10 Crossmatch See Detail 03/01/23 21:10 Impressions Hip/Pelvis X-Ray 03/01/23 15:22 SINGLE VIEW PELVIS; 2 VIEWS RIGHT HIP CLINICAL HISTORY: Fall. Right hip injury. FINDINGS: An AP supine view of the pelvis with AP and crosstable lateral views of the right hip are compared to study dated 03/15/2022. The skeletal structures are osteopenic. There is no radiographic evidence of acute fracture involving the bony pelvis or the left hip. There is a displaced spiral fracture of the intertrochanteric/subtrochanteric right proximal femur. The fragments are displaced by up to 4.5 cm, and there is overriding of fragments. There is medial displacement of the lesser trochanter. Overlying soft tissue edema is observed. Fiducials project over the prostate gland. Moderate arthritic change and joint space narrowing is noted in the hips. Lumbosacral spondylosis is partially imaged. IMPRESSION: Displaced and overriding spiral fracture of the intertrochanteric/subtrochanteric right proximal femur as above. Electronically signed by: Alon Pena M.D. 03/01/2023 4:16 PM Chest X-Ray 03/01/23 15:56 SINGLE VIEW CHEST CLINICAL HISTORY: Fall. Right hip fracture. Preoperative examination. FINDINGS: An AP, portable, supine chest radiograph is compared to study dated 08/18/2022. The examination is degraded by portable technique and patient rotation. The heart is enlarged noting atherosclerotic calcification of the thoracic aorta. The pulmonary vasculature is noncongested. Chronic interstitial thickening similar to previous. Scarring/atelectasis is noted at the lung bases. No airspace consolidation or large pleural effusion is identified. No pneumothorax is seen. The skeletal structures are osteopenic. The bony thorax is grossly intact. Arthritic change is seen in the shoulders. IMPRESSION: Cardiomegaly with no acute cardiopulmonary abnormality identified. ACT 112: Negative or not required by law. Electronically signed by: Alon Pena M.D. 03/01/2023 4:21 PM Femur X-Ray 03/02/23 11:17 XR femur RT 2V routine HISTORY: 87 years-old Male Postop acute fracture of the proximal right femur COMPARISON: 03/01/2023 TECHNIQUE: 2 views the right femur FINDINGS: Intertrochanteric nail with medullary aliza fixating the acute proximal right femoral fracture demonstrates satisfactory alignment. 3 distal cannulated screws. Total joint arthroplasty of the knee again noted. Expected postoperative soft tissue swelling with deep tissue air with lateral skin lisa. IMPRESSION: Status post ORIF of the acute and comminuted proximal right femoral fracture which demonstrates satisfactory alignment. ACT 112: Negative or not required by law. The above report was generated using voice recognition software. It may contain grammatical, syntax or spelling errors. Electronically signed by: Eleuterio Zuñiga M.D. 03/02/2023 12:48 PM (1) Fracture, subtrochanteric, right femur, closed Encounter type: initial encounter Fracture alignment: displaced Qualified Code(s): S72.21XA - Displaced subtrochanteric fracture of right femur, initial encounter for closed fracture
[2023-03-04 08:39] LABS: BUN Creatinine Ratio 30.6 (10-20); Creatinine Clr Calc Pharmacy 39.2 ml/min; Est GFR (African American) 60.2 ml/min; Est GFR (Non-African American) 51.9 ml/min; Potassium 3.9 mmol/L (3.5-5.1)
[2023-03-04 08:45] LABS: Basophils # (auto) 0.01 K/uL (0-0.2); Basophils % (auto) 0.2 %; Eosinophils # (auto) 0.13 K/uL (0-0.50); Eosinophils % (auto) 2.1 %; Hematocrit (blood only) 21.8 % (42.0-52.0); Hemoglobin 7.3 g/dl (14.0-18.0); Immature Granulocytes # (auto) 0.02 K/uL (0.01-0.20); Immature Granulocytes % (auto) 0.3 %; Lymphocytes # (auto) 0.42 K/uL (1.2-3.4); Lymphocytes % (auto) 6.8 %; Mean Corpuscular Hemoglobin 30.8 pg (25.0-34.0); Mean Corpuscular Hgb Conc 33.5 g/dL (32.0-36.0); Mean Platelet Volume 10.9 fL (9.4-12.4); Monocytes # (auto) 0.47 K/uL (0.11-0.59); Monocytes % (auto) 7.6 %; Neutrophils # (auto) 5.16 K/uL (1.40-6.50); Platelet Count 107 K/uL (130-400); Polychromasia 1+; RDW Coefficient of Variation 13.5 % (11.5-14.5); RDW Standard Deviation 44.9 fL (36.4-46.3); Red Blood Count 2.37 M/uL (4.70-6.10); White Blood Count 6.21 K/ul (4.8-10.8)
[2023-03-04 08:52] LABS: Prothrombin Time 11.2 Seconds (9.0-12.0)
[2023-03-04] MEDS: ASPIRIN 325 MG ECTAB PO SCH (09:46)
[2023-03-04] MEDS: CARBIDOPA/LEVODOPA 25/100MG TAB PO SCH ×3 (09:46→20:31)
[2023-03-04] MEDS ORDERED: SODIUM CHLORIDE 0.9% 250 ML IV PRN (09:48)
[2023-03-04] MEDS: LIDOCAINE 5% 1 PATCH TD SCH (09:50)
[2023-03-04] MEDS: FAMOTIDINE 20 MG in SYRINGE 3 ML IV SCH (09:51)
--- NOTE | 2023-03-04 13:59 | Hospitalist Progress Note ---
Date of Service March 04, 2023 Assessment & Plan (1) Fall from standing: Plan: -Sustained a closed Displaced and overriding spiral fracture of the intertrochanteric/subtrochanteric right proximal femur falling off his kitchen chair while reaching for his walker Status post repair of femur fracture today 03/02. -No other acute trauma, did not hit his head or lose consciousness and is not on anticoagulation (2) Acute blood loss as cause of postoperative anemia: Plan: Hemoglobin 7.3 after 1 unit of blood transfusion on 03/03 Ordered another unit of blood transfusion today 03/04 dropped from 11, 3 days ago Patient feels weak Monitor CBC (3) Closed right hip fracture: Plan: Patient had surgery done 03/02: Right hip long cephalomedullary nailing of displaced spiral subtrochanteric femur fracture Postsurgical pain, anticoagulation will be managed by surgical team Likely discharge to residential tomorrow (4) Parkinsonism: Plan: -Continue Carbidopa-levodopa Patient is starting to get slightly delirious Ordered Seroquel to encourage healthy sleep-wake cycle (5) Hypertension: Plan: -Stable Hold candesartan Continue to hold candesartan as blood pressure is on the low side due to anemia We will transfuse today Monitor BMP and consider resuming candesartan (6) Osteoporotic fracture of right hip: Plan Admission and Anticipated Discharge Date Admission Date: March 01, 2023 Subjective Patient is feeling a little weak today. Denies chest pain or shortness of breath. at the bedside. Review of Systems Review of Systems: All systems reviewed & are unremarkable except as noted in Subjective Physical Exam Physical Exam: General: Awake, conversant Heart: S1, S2/regular rate and rhythm, no murmur rubs or gallops Lungs: Clear to auscultation bilaterally. Normal effort Abdomen: Soft/nontender/nondistended. No hepatosplenomegaly Extremities: No clubbing/cyanosis. No edema Behavior: Appropriate, cooperative Results & Data Results & Data Vital Signs (Past 12 Hours) Vital Signs Temp Pulse Pulse Resp BP BP Pulse Ox 03/04/23 13:15 36.5 C 65 18 103/57 L 96 03/04/23 12:19 36.2 C L 83 16 109/54 L 99 03/04/23 11:45 36.5 C 69 16 103/64 94 03/04/23 11:15 36.3 C L 72 14 95/54 L 96 04/24/23 11:00 36.4 C L 70 14 92/56 L 93 03/04/23 10:46 36.6 C 70 18 97 03/04/23 07:03 37.1 C 80 16 102/63 96 O2 Del Method 03/04/23 13:15 03/04/23 12:19 03/04/23 11:45 03/04/23 11:15 03/04/23 11:00 03/04/23 10:46 03/04/23 07:03 Room Air Laboratory Results Abnormal lab results 03/01/23 03/04/23 03/04/23 Range/Units 21:10 07:57 07:57 RBC 2.37 L (4.70-6.10) M/uL Hgb 7.3 L (14.0-18.0) g/dl Hct 21.8 L (42.0-52.0) % Plt Count 107 L (130-400) K/uL Lymph # (Auto) 0.42 L (1.2-3.4) K/uL BUN 38 H (6-23) mg/dl BUN/Creatinine Ratio 30.6 H (10-20) Glucose 126 H (70-99(Fasting)) mg/dl Calcium 8.0 L (8.6-10.3) mg/dl Crossmatch See Detail PG Care Time/CCT Total # of Minutes Spent Total Time Spent with Patient: Total time spent is greater than 50% in coordination of care (as documented) at patient's floor/unit and/or counseling patient: Coding Level of Care Code 48036 SUB INP/OBS CARE 2/35MIN Diagnoses Fall from standing W19.XXXA Acute blood loss as cause of postoperative anemia D62 Closed right hip fracture S72.001A Parkinsonism G20 Hypertension I10 Osteoporotic fracture of right hip M80.051A
[2023-03-04] MEDS: QUEtiapine FUMARATE 25 MG TABLET PO SCH (20:30)
[2023-03-04] MEDS: DOCUSATE SODIUM/SENNA 50/8.6MG TAB PO SCH (20:30)
[2023-03-05] MEDS: ACETAMINOPHEN 500 MG TAB PO SCH ×5 (00:32→23:37)
[2023-03-05] MEDS: IBUPROFEN 600 MG TAB PO SCH ×4 (02:00→20:29)
[2023-03-05 07:34] LABS: Hematocrit (blood only) 23.3 % (42.0-52.0); Hemoglobin 7.9 g/dl (14.0-18.0); Mean Corpuscular Hemoglobin 30.7 pg (25.0-34.0); Mean Corpuscular Hgb Conc 33.9 g/dL (32.0-36.0); Mean Corpuscular Volume 90.7 fL (80.0-100.0); Mean Platelet Volume 10.7 fL (9.4-12.4); Platelet Count 127 K/uL (130-400); RDW Coefficient of Variation 13.7 % (11.5-14.5); RDW Standard Deviation 45.1 fL (36.4-46.3); Red Blood Count 2.57 M/uL (4.70-6.10); White Blood Count 5.91 K/ul (4.8-10.8)
[2023-03-05 07:54] LABS: Basophils # (auto) 0.01 K/uL (0-0.2); Basophils % (auto) 0.2 %; Eosinophils # (auto) 0.24 K/uL (0-0.50); Eosinophils % (auto) 4.1 %; Immature Granulocytes # (auto) 0.03 K/uL (0.01-0.20); Immature Granulocytes % (auto) 0.5 %; Lymphocytes # (auto) 0.56 K/uL (1.2-3.4); Lymphocytes % (auto) 9.5 %; Monocytes # (auto) 0.52 K/uL (0.11-0.59); Monocytes % (auto) 8.8 %; Neutrophils # (auto) 4.55 K/uL (1.40-6.50); Neutrophils % (auto) 76.9 %
[2023-03-05] MEDS: ASPIRIN 325 MG ECTAB PO SCH (08:37)
[2023-03-05] MEDS: CARBIDOPA/LEVODOPA 25/100MG TAB PO SCH ×3 (08:38→19:23)
[2023-03-05] MEDS: LIDOCAINE 5% 1 PATCH TD SCH (08:39)
[2023-03-05] MEDS: FAMOTIDINE 20 MG in SYRINGE 3 ML IV SCH (08:55)
[2023-03-05] MEDS ORDERED: bisacodyL 10 MG SUPP PR STA (10:11)
[2023-03-05] MEDS ORDERED: IRON SUCROSE 200 MG in 0.9 % SODIUM CHLORIDE 100 ML IV ONE (10:15)
[2023-03-05] MEDS: POLYETHYLENE (MIRALAX) 17 GM PACK PO SCH (15:38)
[2023-03-05] MEDS: DOCUSATE SODIUM/SENNA 50/8.6MG TAB PO SCH (19:23)
[2023-03-05] MEDS: QUEtiapine FUMARATE 25 MG TABLET PO SCH (19:24)
[2023-03-05] MEDS ORDERED: oxyCODONE HCL IR 5 MG TAB (IMMEDIATE RELEASE) PO PRN (21:22)
--- NOTE | 2023-03-05 21:23 | Hospitalist Progress Note ---
Date of Service March 05, 2023 Assessment & Plan (1) Age-related osteoporosis with current pathological fracture of femur: Plan: Right femur. POD #3 s/p right hip long cephalomedullary nailing of displaced spiral subtrochanteric femur fracture -- Louie Aldana M.D. DVT proph - asa 325mg daily. TTWB right leg with walker. f/u 12-14 days after surgery. 25-OH vit D level 52.6. Cont scheduled tylenol, lidoderm patches, and oxycodone prn pain. (2) Acute blood loss as cause of postoperative anemia: Plan: s/p 2 units PRBCs since admission. H/H noted today. Will give venofer 200mg IV x 1. If he tolerates such will give 300mg IV x 1 tomorrow. Repeat CBC am. Check a b12 & folate level for completeness. Fecal occult negative today. No active bleeding from the right hip or incision on exam today. (3) Closed right hip fracture: Plan: see #1 above (4) Parkinsonism: Plan: Continue Carbidopa-levodopa (5) Hypertension: Plan: Due to #2 his Bps have been low or low-normal. Thus, hold ARB. (6) Metabolic encephalopathy: Plan: 2nd to hospital psychosis. can't rule out toxic effects from pain meds, recent anesthesia for surgery, etc. cont seroquel HS. add melatonin 3mg HS to promote better sleep-wake cyclce. (7) Benign prostatic hypertrophy: Plan: no voiding issues at this time (8) DVT prophylaxis: Plan: asa 325mg daily consider lowering to 81mg BID Plan updated at bedside will give 1 liter of fluid today as patient appears mildly dry on exam d/c to [place] tomorrow? Admission and Anticipated Discharge Date Admission Date: March 01, 2023 Subjective at bedside during the visit uneventful day a little sleepy early on but was wide awake during my bedside visit he had a BM this afternoon - fecal occult returned negative eating fair liquid intake fair tolerated IV venofer this am asks about potential discharge date Review of Systems Review of Systems: musculo - denies right hip pain cv - no cp, no orthopnea pulm - no dyspnea Physical Exam Physical Exam: gen - NAD, resting comfortably in bed mouth - MM slightly dry neck - no JVD heart - RRR, s1 s2 lungs - CTA b/l abd - soft NT ND BS+ ext - no edema of ankles/feet, 2+ b/l pulses musculo - right hip incision - lisa intact, clean, no drainage; mild ecchymoses lateral thigh; right thigh is larger than left thigh Results & Data Results & Data Vital Signs (Past 12 Hours) Vital Signs Temp Pulse Resp BP Pulse Ox O2 Del Method 03/05/23 16:16 36.4 C L 73 18 109/59 L 97 Room Air 03/05/23 11:53 37.1 C 78 17 119/67 96 Room Air 03/05/23 11:09 36.7 C 70 17 126/76 97 Room Air Laboratory Results Laboratory Results - last 24 hr 03/05/23 03/05/23 06:45 12:45 WBC 5.91 RBC 2.57 L Hgb 7.9 L Hct 23.3 L MCV 90.7 MCH 30.7 MCHC 33.9 RDW Std Deviation 45.1 RDW Coeff of Jones 13.7 Plt Count 127 L MPV 10.7 Immature Gran % (Auto) 0.5 Neut % (Auto) 76.9 Lymph % (Auto) 9.5 [place] % (Auto) 8.8 Eos % (Auto) 4.1 Baso % (Auto) 0.2 Neut # (Auto) 4.55 Lymph # (Auto) 0.56 L [place] # (Auto) 0.52 Eos # (Auto) 0.24 Baso # (Auto) 0.01 Immature Gran # (Auto) 0.03 Stool Occult Bld Scrn Negative PG Care Time/CCT Total # of Minutes Spent Total Time Spent with Patient: Total time spent is greater than 50% in coordination of care (as documented) at patient's floor/unit and/or counseling patient: Coding Level of Care Code 67681 SUB INP/OBS CARE 2/35MIN Diagnoses Age-related osteoporosis with current pathological fracture of femur M80.059A Acute blood loss as cause of postoperative anemia D62 Closed right hip fracture S72.001A Parkinsonism G20 Hypertension I10 Metabolic encephalopathy G93.41 Benign prostatic hypertrophy N40.0 DVT prophylaxis Z29.9
[2023-03-05] MEDS ORDERED: SODIUM CHLORIDE 0.9% 1000ML 1,000 ML IV SCH (21:30)
[2023-03-05] MEDS: MELATONIN 3 MG TAB PO SCH (21:54)
[2023-03-06] MEDS: ACETAMINOPHEN 500 MG TAB PO SCH ×4 (05:31→23:07)
[2023-03-06 06:57] LABS: Basophils # (auto) 0.01 K/uL (0-0.2); Basophils % (auto) 0.2 %; Eosinophils # (auto) 0.29 K/uL (0-0.50); Eosinophils % (auto) 5.4 %; Hematocrit (blood only) 22.9 % (42.0-52.0); Hemoglobin 7.7 g/dl (14.0-18.0); Immature Granulocytes # (auto) 0.02 K/uL (0.01-0.20); Immature Granulocytes % (auto) 0.4 %; Lymphocytes # (auto) 0.49 K/uL (1.2-3.4); Lymphocytes % (auto) 9.1 %; Mean Corpuscular Hemoglobin 30.3 pg (25.0-34.0); Mean Corpuscular Hgb Conc 33.6 g/dL (32.0-36.0); Mean Corpuscular Volume 90.2 fL (80.0-100.0); Mean Platelet Volume 10.2 fL (9.4-12.4); Monocytes # (auto) 0.45 K/uL (0.11-0.59); Monocytes % (auto) 8.3 %; Neutrophils # (auto) 4.15 K/uL (1.40-6.50); Neutrophils % (auto) 76.6 %; Platelet Count 145 K/uL (130-400); RDW Coefficient of Variation 13.4 % (11.5-14.5); RDW Standard Deviation 44.1 fL (36.4-46.3); Red Blood Count 2.54 M/uL (4.70-6.10); White Blood Count 5.41 K/ul (4.8-10.8)
[2023-03-06] MEDS: ASPIRIN 325 MG ECTAB PO SCH (08:13)
[2023-03-06] MEDS: CARBIDOPA/LEVODOPA 25/100MG TAB PO SCH ×3 (08:13→19:45)
[2023-03-06] MEDS: FAMOTIDINE 20 MG TAB PO SCH (08:14)
[2023-03-06] MEDS: LIDOCAINE 5% 1 PATCH TD SCH (08:15)
[2023-03-06] MEDS: POLYETHYLENE (MIRALAX) 17 GM PACK PO SCH (08:15)
[2023-03-06] MEDS ORDERED: IRON SUCROSE 300 MG in SODIUM CHLORIDE 0.9% 250 ML IV ONE (08:30)
[2023-03-06 09:10] LABS: BUN Creatinine Ratio 35.5 (10-20); Calcium 7.8 mg/dl (8.6-10.3); Creatinine Clr Calc Pharmacy 45.5 ml/min; Est GFR (Non-African American) 62.1 ml/min; Magnesium 2.1 mg/dl (1.7-2.4); Potassium 3.8 mmol/L (3.5-5.1)
[2023-03-06] MEDS ORDERED: SODIUM CHLORIDE 0.9% 250 ML IV PRN (09:31)
--- NOTE | 2023-03-06 12:04 | Hospitalist Progress Note ---
Date of Service March 06, 2023 Assessment & Plan (1) Age-related osteoporosis with current pathological fracture of femur: Plan: Right femur. POD #4 s/p right hip long cephalomedullary nailing of displaced spiral subtrochanteric femur fracture -- Louie Aldana M.D. DVT proph - asa 325mg daily. TTWB right leg with walker. f/u 12-14 days after surgery per orthopedics. 25-OH vit D level 52.6. Cont scheduled tylenol, lidoderm patches, and oxycodone prn pain. (2) Acute blood loss as cause of postoperative anemia: Plan: s/p 2 units PRBCs since admission. Although H/H are stable - no major change from yesterday - he is symptomatic from such. Thus, will Tx 1 unit PRBCs today. Give additional dose of venofer 300mg x 1 today. Repeat CBC am. B12/folate wnl. Fecal occult negative. (3) Closed right hip fracture: Plan: see #1 above (4) Parkinsonism: Plan: Continue Carbidopa-levodopa at discharge would stop the seroquel (5) Hypertension: Plan: Due to #2 his Bps have been low or low-normal. Thus, cont to hold ARB. (6) Metabolic encephalopathy: Plan: 2nd to hospital psychosis. can't rule out toxic effects from pain meds, recent anesthesia for surgery, etc. cont seroquel HS but try to stop at discharge. cont melatonin 3mg HS to promote better sleep-wake cyclce. (7) Benign prostatic hypertrophy: Plan: no voiding issues at this time (8) DVT prophylaxis: Plan: asa 325mg daily consider lowering to 81mg BID at discharge Plan updated at bedside d/c to [facility] tomorrow Admission and Anticipated Discharge Date Admission Date: March 01, 2023 Subjective no issues overnight good appetite when attempting to get out of bed he felt dizzy/lightheaded this am a little sleepy this am but improved late in the am/early afternoon right hip pain - mild at bedside questions answered Review of Systems Review of Systems: cv - no orthopnea, no cp pulm - no dyspnea GI - no abd pain or N/V Physical Exam Physical Exam: gen - NAD, resting comfortably in bed mouth - MMM neck - no JVD heart - RRR, s1 s2, no murmur lungs - CTA b/l abd - soft NT ND BS+ ext - no edema of ankles/feet, 2+ b/l pulses skin - pallor Results & Data Results & Data Vital Signs (Past 12 Hours) Vital Signs Temp Pulse Pulse Resp BP BP Pulse Ox 03/06/23 11:37 37 C 73 18 132/68 03/06/23 10:23 36.5 C 77 17 130/81 97 03/06/23 08:46 36.7 C 87 17 132/68 93 03/06/23 07:19 36.6 C 62 16 122/74 96 O2 Del Method 03/06/23 11:37 03/06/23 10:23 Room Air 03/06/23 08:46 Room Air 03/06/23 07:19 Room Air Laboratory Results Laboratory Results - last 48 hr 03/05/23 03/05/23 03/06/23 06:45 12:45 06:18 WBC RBC Hgb Hct MCV MCH MCHC RDW Std Deviation RDW Coeff of Jones Plt Count MPV Immature Gran % (Auto) 0.5 Neut % (Auto) 76.9 Lymph % (Auto) 9.5 Lane % (Auto) 8.8 Eos % (Auto) 4.1 Baso % (Auto) 0.2 Neut # (Auto) 4.55 Lymph # (Auto) 0.[address] # (Auto) 0.52 Eos # (Auto) 0.24 Baso # (Auto) 0.01 Immature Gran # (Auto) 0.03 Sodium 139 Potassium 3.8 Chloride 106 Carbon Dioxide 28 Anion Gap 5 BUN 38 H Creatinine 1.07 Est Cr Clr Drug Dosing 45.5 Est GFR ( Amer) 72.0 Est GFR (Non-Af Amer) 62.1 BUN/Creatinine Ratio 35.5 H Glucose 92 Calcium 7.8 L Magnesium 2.1 Vitamin B12 Folate Stool Occult Bld Scrn Negative Blood Type Antibody Screen Crossmatch 03/06/23 03/06/23 03/06/23 06:18 06:18 09:45 WBC 5.41 RBC 2.54 L Hgb 7.7 L Hct 22.9 L MCV 90.2 MCH 30.3 MCHC 33.6 RDW Std Deviation 44.1 RDW Coeff of Jones 13.4 Plt Count 145 MPV 10.2 Immature Gran % (Auto) 0.4 Neut % (Auto) 76.6 Lymph % (Auto) 9.1 Lane % (Auto) 8.3 Eos % (Auto) 5.4 Baso % (Auto) 0.2 Neut # (Auto) 4.15 Lymph # (Auto) 0.[address] # (Auto) 0.45 Eos # (Auto) 0.29 Baso # (Auto) 0.01 Immature Gran # (Auto) 0.02 Sodium Potassium Chloride Carbon Dioxide Anion Gap BUN Creatinine Est Cr Clr Drug Dosing Est GFR ( Amer) Est GFR (Non-Af Amer) BUN/Creatinine Ratio Glucose Calcium Magnesium Vitamin B12 441 Folate 9.76 Stool Occult Bld Scrn Blood Type A Positive Antibody Screen NEGATIVE Crossmatch See Detail PG Care Time/CCT Total # of Minutes Spent Total Time Spent with Patient: Total time spent is greater than 50% in coordination of care (as documented) at patient's floor/unit and/or counseling patient: Coding Level of Care Code 73972 SUB INP/OBS CARE 2/35MIN Diagnoses Age-related osteoporosis with current pathological fracture of femur M80.059A Acute blood loss as cause of postoperative anemia D62 Closed right hip fracture S72.001A Parkinsonism G20 Hypertension I10 Metabolic encephalopathy G93.41 Benign prostatic hypertrophy N40.0 DVT prophylaxis Z29.9
[2023-03-06] MEDS: QUEtiapine FUMARATE 25 MG TABLET PO SCH (19:45)
[2023-03-06] MEDS: MELATONIN 3 MG TAB PO SCH (19:45)
[2023-03-06] MEDS: DOCUSATE SODIUM/SENNA 50/8.6MG TAB PO SCH (19:45)
[2023-03-06] MEDS ORDERED: OPTIRAY 320 500ml IV ONE (21:45)
--- NOTE | 2023-03-06 22:41 | CT Scan Report ---
Exam(s): CT ABDOMEN + PELVIS W/WO Contrast IV Amt: 91ml Optiray 320 EXAM: CT Abdomen and Pelvis Without and With Intravenous Contrast CLINICAL HISTORY: h/o renal mass; h/o prostate ca. TECHNIQUE: Axial computed tomography images of the abdomen and pelvis without and with intravenous contrast. Automated exposure control was utilized for the study. A dose lowering technique was utilized adhering to the principles of ALARA. CONTRAST: Patient received 91ml Optiray 320 of IV contrast COMPARISON: CT with and without contrast dated 08/18/2021 FINDINGS: Lung bases: Subsegmental changes noted in the posterior lung bases. Pleural space: Small layering bilateral pleural effusions noted, new from the previous examination. ABDOMEN: Liver: Unremarkable. No mass. Gallbladder and bile ducts: Unremarkable. No calcified stones. No ductal dilation. Pancreas: Unremarkable. No mass. No ductal dilation. Spleen: Unremarkable. No splenomegaly. Adrenals: Unremarkable. No mass. Kidneys and ureters: There is a partially pedunculated solid mass extending from the posterior aspect of the right kidney measuring approximately 2.1 x 3 x 2.7 cm. Previously, this lesion measured 2.1 x 2. 5 x 2.6 cm. The left kidney is unremarkable. No hydronephrosis noted bilaterally. Stomach and bowel: No evidence for bowel obstruction. A right inguinal hernia contains a loop of small bowel without mucosal prominence or evidence for obstruction. PELVIS: Appendix: No findings to suggest acute appendicitis. Bladder: Unremarkable. No mass. No stones. Reproductive: Prostatic hypertrophy, similar to the previous exam. Scattered metallic beads noted, similar in appearance. ABDOMEN and PELVIS: Intraperitoneal space: Unremarkable. No free air. No significant fluid collection. Bones/joints: As below. No dislocation. Soft tissues: As above. Postsurgical changes consistent with ORIF of the right hip and proximal femur is noted with overlying subcutaneous fat stranding superficial soft tissue lisa. Asymmetric fullness of the right anterior compartment musculature of the proximal thigh is noted. Vasculature: Unremarkable. No abdominal aortic aneurysm. Lymph nodes: Unremarkable. No significant retroperitoneal lymphadenopathy. IMPRESSION: 1. No evidence for bowel obstruction. A right inguinal hernia contains a loop of small bowel without mucosal prominence or evidence for obstruction. No free intraperitoneal fluid or pneumoperitoneum. 2. There is a partially pedunculated solid mass extending from the posterior aspect of the right kidney measuring approximately 2.1 x 3 x 2. 7 cm. Previously, this lesion measured 2.1 x 2.5 x 2.6 cm. 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 3. Small layering bilateral pleural effusions noted, new from the previous examination. Electronically signed by: Navneet Gaspar MD 03/06/23 22:40 PM
[2023-03-07] MEDS: ACETAMINOPHEN 500 MG TAB PO SCH (05:19)
[2023-03-07 06:26] LABS: BUN Creatinine Ratio 33.3 (10-20); Calcium 8.2 mg/dl (8.6-10.3); Creatinine Clr Calc Pharmacy 54.1 ml/min; Est GFR (African American) 88.7 ml/min; Est GFR (Non-African American) 76.5 ml/min; Potassium 4.4 mmol/L (3.5-5.1)
[2023-03-07 06:42] LABS: Basophils # (auto) 0.02 K/uL (0-0.2); Basophils % (auto) 0.3 %; Eosinophils % (auto) 4.4 %; Hematocrit (blood only) 27.5 % (42.0-52.0); Hemoglobin 9.2 g/dl (14.0-18.0); Immature Granulocytes # (auto) 0.04 K/uL (0.01-0.20); Immature Granulocytes % (auto) 0.6 %; Lymphocytes # (auto) 0.54 K/uL (1.2-3.4); Mean Corpuscular Hemoglobin 30.6 pg (25.0-34.0); Mean Corpuscular Hgb Conc 33.5 g/dL (32.0-36.0); Mean Corpuscular Volume 91.4 fL (80.0-100.0); Mean Platelet Volume 10.1 fL (9.4-12.4); Monocytes # (auto) 0.62 K/uL (0.11-0.59); Monocytes % (auto) 9.2 %; Neutrophils # (auto) 5.23 K/uL (1.40-6.50); Neutrophils % (auto) 77.5 %; Platelet Count 169 K/uL (130-400); RDW Coefficient of Variation 13.3 % (11.5-14.5); RDW Standard Deviation 44.6 fL (36.4-46.3); Red Blood Count 3.01 M/uL (4.70-6.10); White Blood Count 6.75 K/ul (4.8-10.8)
[2023-03-07 07:20] VITALS: PULSE 66; TEMP 98.2; O2SAT 95
[2023-03-07 07:56] VITALS: BP 123/66
[2023-03-07] MEDS: ASPIRIN 325 MG ECTAB PO SCH (08:50)
[2023-03-07] MEDS: FAMOTIDINE 20 MG TAB PO SCH (08:50)
[2023-03-07] MEDS: LIDOCAINE 5% 1 PATCH TD SCH (08:51)
[2023-03-07] MEDS: POLYETHYLENE (MIRALAX) 17 GM PACK PO SCH (08:51)
[2023-03-07] MEDS: CARBIDOPA/LEVODOPA 25/100MG TAB PO SCH (08:51)
--- NOTE | 2023-03-07 10:43 | Discharge Summary ---
Date of Service March 07, 2023 Admission HPI Per Admitting Provider Reid is an 87 year old male with a PMH significant for dysphonia, parkinsonism, prostate cancer S/P radiation therapy and BPH who presented to the [facility] ED on 03/01/23 via EMS after a mechanical fall from standing and right hip pain. In the ED the patient was initially hypertensive at 174/116, otherwise vitals were stable. Labs including CBC and CMP were without acute abnormalities. Chest xray was read as Cardiomegaly with no acute cardiopulmonary abnormality identified.. Xray of the pelvis was read as Displaced and overriding spiral fracture of the intertrochanteric/subtrochanteric right proximal femur as a jose.. Prior to admission the patient was given 4 mg IV morphine. At the time of the exam the patient was lying in bed in no acute distress with his sitting bedside, history was obtained from both. He states that he was in his normal state of health, sitting at the kitchen table. He was sitting and tried to reach for his walker when he fell off his chair, landing on his right side. He denies hitting his head or losing consciousness. His states that he started Carbidopa-Levodopa approximately 2 weeks ago, they have not noticed any side effects. Currently his only complaint is 4/10 right hip pain. He denies headache, changes in vision, hearing, taste, smell, chest pain, SOB, abd pain, nausea, vomiting, diarrhea, dysuria, hematuria, melena, LE swelling, and other pain from his fall. We discussed code status, he has a living will and his is his POA. He is a DNR/DNI. Please refer to Dr. Luke's attestation for any changes to the treatment plan Discharge Exam gen - NAD, resting comfortably in bed mouth - MMM neck - no JVD heart - RRR, s1 s2, no murmur lungs - CTA b/l abd - soft NT ND BS+ ext - no edema of ankles/feet, 2+ b/l pulses skin - pallor Discharge Data Allergies Allergy/AdvReac Type Severity Reaction Status Date / Time oxycodone AdvReac Mild NAUSEA AND Verified 10/15/22 13:38 VOMITING Consultations 03/01/23 17:01 Consult Orthopedic Surgery Stat 03/01/23 17:02 ED Decision to Admit Stat Procedures Performed Operation Date: 03/02/23 07:30 Actual Procedures p Right Long Trochanteric Femoral Nail(Right) - Louie Aldana M.D. Ordered Studies 03/02/23 FL femur RT 2V Routine 03/06/23 16:49 CT Abd and Pelvis [CT abdomen pelvis wo/w con] Routine Hospital Course (1) Age-related osteoporosis with current pathological fracture of femur: Right femur. POD #4 s/p right hip long cephalomedullary nailing of displaced spiral subtrochanteric femur fracture -- Louie Aldana M.D. DVT proph - asa 325mg daily. TTWB right leg with walker. f/u 12-14 days after surgery per orthopedics. 25-OH vit D level 52.6. Cont scheduled tylenol, lidoderm patches, and oxycodone prn pain. (2) Acute blood loss as cause of postoperative anemia: s/p 2 units PRBCs since admission. Although H/H are stable - no major change from yesterday - he is symptomatic from such. Thus, will Tx 1 unit PRBCs today. Give additional dose of venofer 300mg x 1 today. Repeat CBC am. B12/folate wnl. Fecal occult negative. (3) Closed right hip fracture: see #1 above (4) Parkinsonism: Continue Carbidopa-levodopa at discharge would stop the seroquel (5) Hypertension: Due to #2 his Bps have been low or low-normal. Thus, cont to hold ARB. (6) Metabolic encephalopathy: 2nd to hospital psychosis. can't rule out toxic effects from pain meds, recent anesthesia for surgery, etc. cont seroquel HS but try to stop at discharge. cont melatonin 3mg HS to promote better sleep-wake cyclce. (7) Benign prostatic hypertrophy: no voiding issues at this time (8) DVT prophylaxis: asa 325mg daily consider lowering to 81mg BID at discharge Plan updated at bedside d/c to [facility] tomorrow Discharge Plan Discharge Items Patient Disposition: Transfer [facility] Living [facility] Reason For Visit: FALL, RIGHT HIP PAIN Discharge Diagnosis: 1. Right subtrochanteric femur fracture s/p ORIF - 03/02/23 - Dr Louie Aldana 2. Acute blood loss anemia s/p 3 units PRBCs; discharge hemoglobin 9.2 3. Parkinsonism 4. Known right-sided kidney mass - urology follow-up needed 5. Acute encephalopathy - improved Activity: Per Instructions section Weightbearing: Right toe touch Non-emergency contact: Primary Care Provider and Surgeon Call non-emergency contact if: you have any medication questions, your symptoms worsen, your pain is not controlled, your pain is worsening, your wound has increased redness, your wound has increased drainage and your wound pain has increased Follow-up/Referrals: Dante Rodriguez MD [Physician] - 03/14/23 1:20 pm (f/u for right sided kidney mass ) Nik Goode MD [Primary Care Provider] - Louie Aldana M.D. [Physician] - (Follow up with Dr Still in 2 weeks from the day of your surgery for your first post operative visit. ) Diet: Regular Addtl Attending Provider Instructions: Mr Robert was hospitalized after suffering a right hip fracture (right subtrochanteric femur fracture). This required operative repair on 03/02/23. Surgery was performed by Dr Louie Aldana. Post-op course was complicated by acute blood loss anemia, constipation, and metabolic encephalopathy. Fecal occult blood test was negative. Blood loss was from the right hip fracture and subsequent surgery. He received 3 units of PRBCs while here, and discharge hemoglobin is 9.2. He also received 2 infusions of IV iron. Encephalopathy improved with seroquel which should be weaned off as tolerated over the next 3 days upon transition to [facility]. Recommendations - 1. CBC, BMP in 5 days for stability; results to medical scribe. 2. Seroquel 12.5mg PO HS x 3 days then stop. 3. Dressings to right hip/thigh incision daily and prn. 4. Patient has tiny skin ulcer medial to the right thigh incision. May apply optifoam to this tiny ulcer (or whatever equivalent dressing that you have) every other day and prn. 5. Additional instructions from Orthopedics as listed below. Addtl Logistics Engineer Provider Instructions: [facility] DISCHARGE INSTRUCTIONS: HIP FRACTURE SELF CARE INSTRUCTIONS: A. You are to ambulate with a walker or crutches for approximately 6 weeks. B. You are TOE TOUCH WEIGHT BEARING on your operative lower extremity for at least 6 weeks. C. Wear low heeled shoes with non-slip soles D. Be sure that your floors are free of things that could trip you throw rugs, electrical cords, and small objects. Avoid wet and waxed floors, especially with crutches/walker/cane. E. Try to walk several times a day with rest periods between. F. You may shower 48 hours after surgery and get the incision area wet, but DO NOT soak or submerge incision area in water. (No baths, swimming pools, hot tubs). G. Do NOT apply soap or any ointment/lotions directly over incision. H. You may use ice as needed to operative site. SPECIAL CARE INSTRUCTIONS: VERY IMPORTANT TO READ AND REVIEW A. You may be at risk for phlebitis or blood clots. a. Wear surgical stockings (RODRÍGUEZ hose) for 2 weeks after surgery to improve circulation and reduce swelling. b. Take ASPIRIN 325 mg daily for 6 weeks or as directed. This is your blood thinner. B. There are a few signs you need to watch for after you are home. Call [facility] at [phone] if you experience any of the following: a. If you have a temperature of 101 degrees or higher. b. Sudden increase in pain in your hip not relieved by rest or pain medication. c. Any fluid or drainage from the incision; redness of the incision. d. Shortness of breath or chest pain. B. Please call [facility] at [phone] if you have any questions or concerns about your operation or recovery. C. Call your physician if: a. Temperature is greater than 101 degrees (F). b. Pain is not relieved by prescribed pain medications. c. Increase drainage or redness from incision. d. Unanswered questions or concerns. D. Pain Medication: a. You will be prescribed pain medication upon discharge that should last till your first post-operative appointment. b. If you experience nausea and/or skin rash, discontinue this medication and contact our office for an alternative medication. c. Caution- narcotic pain medication can cause constipation. FOLLOW UP VISIT: Please call [facility] at [phone] to schedule a follow up appointment with Dr Aldana 10-14 days from the date of your surgery (surgery was 03/02/23). Pending Studies at Discharge: No Stand-Alone Forms: My [facility] Skilled Items Patient informed of condition?: Yes DNR: No Discharge Level of Care: Skilled Communicable Disease: No Discharge Prognosis: Stable Lines: None Urinary Catheter: No Medications and DC Order Prescriptions: New acetaminophen [Tylenol Extra Strength] 500 mg Tablet 1,000 mg PO TID 14 Days Qty: 84 0RF quetiapine 25 mg Tablet 12.5 mg PO HS 3 Days Qty: 3 0RF polyethylene glycol 3350 [Miralax] 17 gram Powder In Packet 17 g PO DAILY Qty: 30 0RF famotidine 20 mg Tablet 20 mg PO DAILY 42 Days Qty: 42 0RF oxycodone 5 mg Tablet 2.5 mg PO Q8H PRN (Reason: pain) Qty: 10 0RF sennosides-docusate sodium [Senokot-S] 8.6-50 mg Tablet 2 tab PO HS Qty: 60 0RF melatonin 3 mg Tablet 3 mg PO HS Qty: 30 0RF cholecalciferol (vitamin D3) 50 mcg (2,000 unit) capsule 2,000 unit PO DAILY Qty: 30 2RF aspirin [Ecotrin] 325 mg Tablet,Delayed Release (Dr/Ec) 325 mg PO DAILY 42 Days Qty: 42 0RF Rx Instructions: for DVT prophylaxis lidocaine 5 % Adhesive Patch,Medicated 2 patch transdermal QAM Qty: 60 0RF Rx Instructions: apply to any area of pain for 12 hours, remove for 12 hours. Continued ipratropium bromide 42 mcg (0.06 %) spray,non-aerosol 2 spray intranasal DAILY Qty: 45 4RF carbidopa-levodopa 25-100 mg tablet 1 tab PO TID cyanocobalamin (vitamin B-12) 1,000 mcg Capsule 1,000 mcg PO DAILY Discontinued candesartan 4 mg tablet 4 mg PO DAILY cholecalciferol (vitamin D3) 125 mcg (5,000 unit) capsule 125 mcg PO DAILY Discharge Orders: Discharge Order (Routine); Ordered 03/07/23 Ordered By: Randy Lamb/Other Patient Handouts: Understanding Deep Vein Thrombosis, Preventing Deep Vein Thrombosis, Fall Prevention Assessing Risk Admission Data Admit Date/Time: 03/01/23 17:05 Attending Provider: Randy Davies Admit Provider: Randy Luke Primary Care Provider: Nik Goode Other Providers: Louie Aldana ; Randy Luke ; Jim Elizabeth Other Interventions: Discharge Summary Assessment (RN) Last Done: 03/07/23 07:53 Coding Diagnoses Age-related osteoporosis with current pathological fracture of femur M80.059A Acute blood loss as cause of postoperative anemia D62 Closed right hip fracture S72.001A Parkinsonism G20 Hypertension I10 Metabolic encephalopathy G93.41 Benign prostatic hypertrophy N40.0 DVT prophylaxis Z29.9
== END 2023-03-07 12:41 | DRG 480 ==
LOC: ED 14:53 → SUATTDRO 17:05 → 3W 17:05